=== PATIENT | female | born 1965 | race Caucasian/White ===

== ENCOUNTER 2019-12-28 06:23 | Outpatient (CLI) | payer OTHER, SELFPAY ==
[2019-12-28 16:20] LABS: SARS-CoV-2 RNA PCR Negative
== END 2019-12-28 06:24 | disposition home or self-care (01) ==
LOC: ANHCOVIDDT 06:24
PROVIDERS: PCP Internal Medicine; Visit Provider Surgery
DX: Z01.818 Encounter for other preprocedural examination (principal); Z11.59 Encounter for screening for other viral diseases
CPT/HCPCS: 87635; C9803; U0003

== ENCOUNTER 2019-12-31 00:12 | Day surgery (SDC) | payer OTHER, SELFPAY ==
[2019-10-31 12:07] VITALS: BMI 31.5
--- NOTE | 2019-12-25 14:40 | SUR.PREOP ---
pt states no change in recent health hx since interview on 10/31/19
--- NOTE | 2019-12-31 07:47 | PM.HPGS ---
History of Present Illness History of Present Illness Consent: Risks, benefits, and alternatives of removal of a lipoma have been discussed and questions answered. Patient agrees to proceed with procedure. Chief complaint: 10 cm Subcutaneous Mass Mid Back Narrative: Christal Main is a 54 year old female that presented to the office for an evaluation of a right upper back mass in early October this year. Patient reports she has noticed the mass a few years ago. She reports the mass is getting and that there is pain to the area when pressure is applied. Patient reports that she has had a lipoma removed about 15 years ago. She reports that one was on her back as well but in a different location. She reports over the last year the current mass is about 25% bigger than it was a year ago. Review of Systems Constitutional: Constitutional: Reports no additional constitutional complaints, Reports fatigue and Denies malaise Eyes: Eyes: Denies change in vision and Denies loss of vision ENT: Reports Normal hearing present, Denies change in voice, Denies dizziness, Denies hoarseness and Denies sore throat Cardiovascular: Cardiovascular: Denies chest pain, Denies leg edema and Denies dyspnea Respiratory: Respiratory: Denies cough, Denies dyspnea and Denies wheezing Gastrointestinal: Gastrointestinal: Denies hematochezia, Denies change in bowel habits and Denies heartburn Genitourinary: Genitourinary: Denies urinary frequency and Denies urinary incontinence Integumentary/Breasts: Comments: She has a history of 1 previous lipoma being removed from her back in the past in a different location. Neurologic: Reports Normal hearing present, Denies confusion, Denies dizziness, Denies loss of vision, Denies memory loss and Denies seizure-like activity Psychiatric: Psychiatric: Denies confusion, Denies depression and Denies memory loss Endocrine: Endocrine: Denies cold intolerance and Reports fatigue Hematologic/Lymphatic: Hematologic/Lymphatic: Denies easy bleeding and Denies easy bruising Allergic/Immunologic: Allergic/Immunologic: Denies wheezing PMFSH Past Medical History Medical History Asthma (Unknown) History of asthma Surgical History Surgical History H/O sinus surgery 2017 Hx of removal of cyst Family History Family History Father A-fib Malignant neoplasm of prostate Mother A-fib Hypertension Sibling Cancer Social History Social History Smoking status: Never smoker Alcohol intake: current Substance use: never 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 Medications and Allergies Home Medications Medication Instructions Recorded Confirmed Type cetirizine 10 mg tablet 10 mg PO DAILY 10/16/19 12/31/19 History albuterol sulfate [ProAir HFA] 2 puff INHALATION Q4-6H PRN 10/31/19 10/31/19 History cholecalciferol (vitamin D3) 1,000 unit PO DAILY 10/31/19 12/31/19 History [Vitamin D3] fluticasone propionate [Flonase 1 spray INTRANASAL DAILY PRN 10/31/19 12/31/19 History Allergy Relief] Allergies Allergy/AdvReac Type Severity Reaction Status Date / Time No Known Allergies Allergy Unknown Verified 12/31/19 07:39 Exam Const: General: cooperative, healthy appearing, no acute distress, well developed and alert; No confusion Nutritional Appearance: well nourished Orientation/consciousness: patient oriented x3 and No confusion Limitations: no limitations HENMT: Head: normal to inspection, normocephalic and atraumatic Ears: hearing grossly normal bilaterally General nose exam: Normal external nose present Face and sinus: no edema Mouth: Yes Normal oral and palatal mucosa present and Yes lip normal Throat: posterior oropharynx normal Eyes: Genera
[2019-12-31 07:55] VITALS: BP 141/83; PULSE 76; RESP 16; TEMP 37.3; O2SAT 99
[2019-12-31] MEDS: LACTATED RINGERS 1,000 ML 30 ML IV CONT (08:00)
--- NOTE | 2019-12-31 08:35 | WPDANESEPPF ---
Anes - Initial Pre Proc Eval Procedure: Operation Date: 12/31/19 09:30 Proposed Procedures p Excision Of Subcutaneous Mass Right Mid Back - Darrel Faria MD Date/Time: 12/31/19 08:35 Surgeon: Darrel Faria MD Pre Op Diagnosis: 10 cm Subcutaneous Mass Mid Back Patient Data Age: 54 Gender: F Height: 5 ft 10 in Weight: 106.6 kg Last Vital Signs Temp 37.3 C 12/31/19 07:55 Pulse 76 12/31/19 07:55 Resp 16 12/31/19 07:55 BP 141/83 H 12/31/19 07:55 Pulse Ox 99 12/31/19 07:55 Allergies Allergy/AdvReac Type Severity Reaction Status Date / Time No Known Allergies Allergy Unknown Verified 12/31/19 07:39 Home Medications Medication Instructions Recorded Confirmed Type cetirizine 10 mg tablet 10 mg PO DAILY 10/16/19 12/31/19 History albuterol sulfate [ProAir HFA] 2 puff INHALATION Q4-6H PRN 10/31/19 10/31/19 History cholecalciferol (vitamin D3) 1,000 unit PO DAILY 10/31/19 12/31/19 History [Vitamin D3] fluticasone propionate [Flonase 1 spray INTRANASAL DAILY PRN 10/31/19 12/31/19 History Allergy Relief] Patient hx anesthesia problems: none Family hx anesthesia problems: none PMFSH Past Medical History Medical History Asthma (Unknown) History of asthma Surgical History Surgical History H/O sinus surgery 2017 Hx of removal of cyst Family History Family History Father A-fib Malignant neoplasm of prostate Mother A-fib Hypertension Sibling Cancer Social History Social History Smoking status: Never smoker Alcohol intake: current Substance use: never 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 Questions were solicited and answers provided to the satisfaction of the patient/family/POA.
[2019-12-31] MEDS: LIDO 2%/EPINEPHRINE 1:100,000 20 ML VIAL INFILTRATE (10:15)
--- NOTE | 2019-12-31 10:34 | SUR.OPER ---
EBL:10cc
[2019-12-31 11:04] VITALS: BP 111/69; PULSE 68; RESP 14; TEMP 36.2; O2SAT 100
--- NOTE | 2019-12-31 11:12 | PM.PROC ---
Procedure Note - Detailed Date of procedure: 12/31/19 Pre-op diagnosis: 10 cm Subcutaneous Mass Mid Back Post-op diagnosis: same Procedure performed: Excision of 12 X 11.5 cm subcutaneous mass right mid back Description of procedure: The patient was placed in the left lateral decubitus position. After a surgical time out confirming patient and procedure the patient was prepped and draped in the usual sterile fashion. Local anesthetic was administered subcutaneously along the proposed line of incision transversely and also from that line both cephalad and inferior in the subcutaneous space. The lesion measured prior to excision 9 x 9 cm. A direct transverse incision was made over the area of the subcutaneous mass. I dissected in the subcutaneous space between the lipoma and the fat underlying the skin both inferiorly and superiorly and then circumferentially until we came to the edge of the mass where it attached to some underlying fascia. I then started laterally and carefully rotated the mass grabbing it with Allis forceps and rotating it out of the incision from lateral to medial, dissecting in the plane between theback of the lipoma and the fascia of the underlying muscle until I was able to rotate it completely off the underlying fascia. I thereby completely excised the lesion. Bleeding was controlled with electrocautery. After removal of the fatty mass it measured transversely 11.5 cm and vertically 12.0 cm. Following this because there was a good amount of space that would be left I decided to place a 15 round Federico drain. This is obtained and then brought out through a stab wound approximately 4 cm lateral to the lateral end of the incision. This was sutured into place with a 3-0 nylon suture. It was curled within the subcutaneous space and bulb suction applied after we closed the skin and subcutaneous tissues. The wound was closed in two layers. First interrupted sutures of 2- 0 undyed Vicryl were placed intermittently along the incision to approximate the deep subcutaneous tissues. Then interupted un-dyed 3-0 vicryl deep dermal sutures aproximated skin and then a 4-0 undyed Monocryl running subcuticular closure was completed. Surgical glue applied as dressing. A 2 x 2 was applied around the TORITO drain and medium Tegaderm applied for dressing over this. Patient tolerated this well. Patient will be taught how to empty the drain and sent home with instruction regarding this. Anesthesia: local Surgeon: Darrel Faria MD Estimated blood loss (mL): 10 Drains: Yes ( A 15 FR. round Federico drain placed in the cavity left by excision of the li) Packing: No Pathology: yes Complications: No immediate complications Condition: stable Disposition: same day Findings: A fatty subcutaneous mass densely adhered to the underlying fascia.
[2019-12-31 11:30] VITALS: BP 100/85; PULSE 61; RESP 14
[2019-12-31 12:00] VITALS: BP 99/69; PULSE 61; RESP 14
== END 2019-12-31 12:20 | disposition home or self-care (01) ==
PROVIDERS: PCP Internal Medicine; Visit Provider Surgery
PROC: (CPT 21931; principal; 2019-12-31 09:30)
DX: D17.1 Benign lipomatous neoplasm of skin and subcutaneous tissue of trunk (principal); J45.909 Unspecified asthma, uncomplicated; R00.0 Tachycardia, unspecified
CPT/HCPCS: 21931; 88304; J2001; J2250; J2405; J2704; J3010; J7120

== ENCOUNTER 2020-05-27 07:59 | Outpatient (CLI) | payer OTHER, SELFPAY ==
[2020-05-27 08:31] LABS: Basophils Percent Auto 0.6 % (0.2-1.2); Eosinophils Absolute Auto 0.4 K/mm3 (0-0.3); Eosinophils Percent Auto 5.9 % (0-4.4); Hematocrit 36.1 % (37.0-47.0); Hemoglobin 11.3 g/dL (12.0-15.0); Immature Granulocyte Absolute 0.01 K/mm3 (0.00-0.031); Immature Granulocyte Percent A 0.2 % (0-0.5); Lymphocytes Absolute Auto 2.23 K/mm3 (0.9-3.2); Lymphocytes Percent Auto 33.8 % (18.3-44.2); Mean Corpuscular HGB Conc 31.3 g/dl (32-36); Mean Corpuscular Hemoglobin 24.9 pg (26-34); Mean Corpuscular Volume 79.5 fl (80-100); Mean Platelet Volume 8.2 fl (7.4-10.4); Monocytes Absolute Auto 0.4 K/mm3 (0.1-0.6); Monocytes Percent Auto 5.3 % (2.6-8.5); Neutrophils Absolute Auto 3.6 K/mm3 (1.3-6.7); Neutrophils Percent Auto 54.2 % (45.5-73.1); Platelet Count Result 420 k/mm3 (150-375); Red Blood Count 4.54 M/mm3 (4.2-5.4); Red Cell Distribution Width 15.6 % (11.5-14.5); White Blood Count 6.6 K/mm3 (4.5-10.0)
[2020-05-27 08:43] LABS: Alanine Aminotransferase 29 U/L (4-35); Albumin Level 4.4 g/dL (3.5-5.1); Alkaline Phosphatase 56 U/L (38-126); Anion Gap 11 mmol/L (8-16); Aspartate Amino Transferase 33 U/L (14-36); Bilirubin,Total 0.7 mg/dL (0.2-1.3); Blood Urea Nitrogen 11 mg/dL (7-17); Calcium 9.7 mg/dL (8.4-10.2); Carbon Dioxide 28 mmol/L (22-30); Chloride 99 mmol/L (98-107); Cholesterol 208 mg/dL (0-200); Estimated Glomerular Filt Rate > 60; Glucose 100 mg/dL (65-105); HDL Direct 56 mg/dL; Potassium 4.2 mmol/L (3.4-5.0); Sodium 138 mmol/L (137-145); Triglycerides 231 mg/dL (<150)
[2020-05-27 08:51] LABS: Erythrocyte Sedimentation Rate 23 mm/hr (0-20)
[2020-05-27 08:57] LABS: LDL Cholesterol Direct 107 mg/dL
== END 2020-05-27 08:00 | disposition home or self-care (01) ==
PROVIDERS: PCP Internal Medicine; Referring Provider Physician Assistant; Visit Provider Internal Medicine
DX: Z00.00 Encounter for general adult medical examination without abnormal findings (principal); D47.3 Essential (hemorrhagic) thrombocythemia
CPT/HCPCS: 36415; 80053; 80061; 84443; 85025; 85652

== ENCOUNTER 2020-07-11 11:36 | Outpatient (CLI) | payer OTHER, SELFPAY ==
[2020-07-11 13:42] LABS: Free T4 Free Thyroxine 1.09 ng/mL (0.78-2.19)
[2020-07-17 21:16] LABS: Estrone 14 pg/mL
[2020-07-19 05:41] LABS: FSH 26.1 mIU/mL (***); LH 7.2 mIU/mL (***); Progesterone 0.3 ng/mL (***)
[2020-07-19 14:54] LABS: Testosterone Free 1.3 pg/mL (0.1-6.4); Testosterone Total 10 ng/dL (2-45)
[2020-07-20 17:21] LABS: Estradiol, Ultrasensitive 6 pg/mL
== END 2020-07-11 11:37 | disposition home or self-care (01) ==
PROVIDERS: PCP Internal Medicine; Visit Provider Obstetrics & Gynecology
DX: N93.9 Abnormal uterine and vaginal bleeding, unspecified (principal)
CPT/HCPCS: 36415; 82670; 82679; 83001; 83002; 84144; 84402; 84403; 84439; 84443

== ENCOUNTER → 2020-07-25 13:56 | Outpatient (CLI) | payer OTHER, SELFPAY ==
--- NOTE | ~2020-07-25 | US_ITS ---
EXAMINATION: US pelvic complete w TV DATE: 07/25/2020 14:24 INDICATION: Abnormal bleeding. Menorrhagia. Comparison:No prior studies for comparison. TECHNIQUE: Multiple transabdominal and endovaginal sonographic images of the pelvis performed. FINDINGS: The uterus measures 8.7 x 5.8 x 5.6 cm. The endometrial complex measures 7 mm. The right ovary is not visualized. Left ovary is normal measuring 3 x 1.6 x 2.4 cm. There is no free fluid in the pelvis. There are no abnormal masses seen on either side. IMPRESSION: 1. Unremarkable pelvic ultrasound. Reviewed, dictated and finalized at location B. ARCHIVIST
== END ==
PROVIDERS: PCP Internal Medicine; Visit Provider Obstetrics & Gynecology
DX: N93.9 Abnormal uterine and vaginal bleeding, unspecified (principal)
CPT/HCPCS: 76830; 76856

== ENCOUNTER 2021-01-02 16:17 | Outpatient (CLI) | payer OTHER, SELFPAY ==
[2021-01-05 15:00] LABS: Testosterone Free 1.5 pg/mL (0.1-6.4); Testosterone Total 15 ng/dL (2-45)
[2021-01-06 04:59] LABS: Progesterone 0.9 ng/mL (***)
[2021-01-07 18:08] LABS: Estradiol, Ultrasensitive 30 pg/mL
== END 2021-01-02 16:18 | disposition home or self-care (01) ==
PROVIDERS: PCP Internal Medicine; Visit Provider Obstetrics & Gynecology
DX: N93.9 Abnormal uterine and vaginal bleeding, unspecified (principal); N95.1 Menopausal and female climacteric states
CPT/HCPCS: 36415; 82670; 84144; 84402; 84403

== ENCOUNTER 2021-03-11 15:38 | Outpatient (CLI) | payer OTHER, SELFPAY ==
--- NOTE | ~2021-03-11 | MM_ITS ---
EXAMINATION: MM screening [facility] BI w itz HISTORY: Screening TECHNIQUE: Craniocaudal and mediolateral oblique 3-D tomosynthesis images were obtained and synthetic 2-D images were generated. CAD analysis was submitted and interpreted. COMPARISON: Comparison to multiple prior studies sequentially, with oldest reviewed study dated 04/13. BREAST PARENCHYMAL COMPOSITION: There are scattered areas of fibroglandular density. FINDINGS: There is no evidence of suspicious mass, calcification, or architectural distortion to sugg est malignancy in either breast. There has been no suspicious interval change. IMPRESSION: 1. No mammographic evidence of malignancy. 2. Recommend routine screening mammography in one year. BI-RADS Category 1: Negative Reviewed, dictated and finalized at location A.
== END 2021-03-11 15:39 | disposition home or self-care (01) ==
LOC: ANHIMG 15:40
PROVIDERS: PCP Internal Medicine; Visit Provider Obstetrics & Gynecology
DX: Z12.31 Encounter for screening mammogram for malignant neoplasm of breast (principal)
CPT/HCPCS: 77063; 77067

== ENCOUNTER 2022-06-22 08:32 | Outpatient (CLI) | payer BC, SELFPAY ==
--- NOTE | ~2022-06-22 | MM_ITS ---
EXAMINATION: MM screening [facility] BI w itz HISTORY: Screening TECHNIQUE: Craniocaudal and mediolateral oblique 3-D tomosynthesis images were obtained and synthetic 2-D images were generated. CAD analysis was submitted and interpreted. COMPARISON: Comparison to multiple prior studies sequentially, with oldest reviewed study dated 04/13. BREAST PARENCHYMAL COMPOSITION: There are scattered areas of fibroglandular density. FINDINGS: There is no evidence of suspicious mass, calcification, or architectural distortion to sugg est malignancy in either breast. There has been no suspicious interval change. IMPRESSION: 1. No mammographic evidence of malignancy. 2. Recommend routine screening mammography in one year. BI-RADS Category 1: Negative Reviewed, dictated and finalized at location A.
== END 2022-06-22 08:33 | disposition home or self-care (01) ==
PROVIDERS: PCP Obstetrics & Gynecology; Visit Provider Obstetrics & Gynecology
DX: Z12.31 Encounter for screening mammogram for malignant neoplasm of breast (principal)
CPT/HCPCS: 77063; 77067

== ENCOUNTER 2022-11-01 07:48 | Outpatient (CLI) | payer BC, SELFPAY ==
[2022-11-01 08:02] LABS: Basophils Absolute Auto 0.1 K/mm3 (0.0-0.1); Basophils Percent Auto 0.8 % (0.2-1.2); Eosinophils Absolute Auto 0.4 K/mm3 (0-0.3); Eosinophils Percent Auto 6.9 % (0-4.4); Hematocrit 40.7 % (37.0-47.0); Hemoglobin 14.1 g/dL (12.0-15.0); Immature Granulocyte Absolute 0.02 K/mm3 (0.00-0.031); Immature Granulocyte Percent A 0.3 % (0-0.5); Lymphocytes Absolute Auto 2.36 K/mm3 (0.9-3.2); Lymphocytes Percent Auto 36.8 % (18.3-44.2); Mean Corpuscular HGB Conc 34.6 g/dl (32-36); Mean Corpuscular Hemoglobin 30.9 pg (26-34); Mean Corpuscular Volume 89.3 fl (80-100); Mean Platelet Volume 8.2 fl (7.4-10.4); Monocytes Absolute Auto 0.5 K/mm3 (0.1-0.6); Monocytes Percent Auto 7.2 % (2.6-8.5); Neutrophils Absolute Auto 3.1 K/mm3 (1.3-6.7); Platelet Count Result 298 k/mm3 (150-375); Red Blood Count 4.56 M/mm3 (4.2-5.4); Red Cell Distribution Width 12.7 % (11.5-14.5); White Blood Count 6.4 K/mm3 (4.5-10.0)
[2022-11-01 08:12] LABS: Alanine Aminotransferase 36 U/L (6-35); Albumin Level 4.4 g/dL (3.5-5.1); Alkaline Phosphatase 59 U/L (38-126); Anion Gap 4 mmol/L (8-16); Aspartate Amino Transferase 34 U/L (14-36); Bilirubin,Total 0.9 mg/dL (0.2-1.3); Blood Urea Nitrogen 12 mg/dL (7-17); Carbon Dioxide 29 mmol/L (22-30); Chloride 104 mmol/L (98-107); Cholesterol 217 mg/dL (0-200); Estimated Glomerular Filt Rate > 60; Glucose 98 mg/dL (65-110); HDL Direct 55 mg/dL; Potassium 3.9 mmol/L (3.4-5.0); Sodium 137 mmol/L (137-145); Triglycerides 139 mg/dL (<150)
[2022-11-01 08:23] LABS: LDL Cholesterol Direct 109 mg/dL
[2022-11-01 08:26] LABS: Iron 104 ug/dL (37-170)
[2022-11-01 08:36] LABS: Percent Iron Saturation 32 % (20-50)
[2022-11-01 08:44] LABS: Free T4 Free Thyroxine 1.52 ng/mL (0.78-2.19)
[2022-11-01 09:22] LABS: Folic Acid > 20.0 ng/mL (2.76->20)
== END 2022-11-01 07:49 | disposition home or self-care (01) ==
PROVIDERS: PCP Obstetrics & Gynecology; Visit Provider Internal Medicine
DX: Z00.00 Encounter for general adult medical examination without abnormal findings (principal); D64.9 Anemia, unspecified; R53.83 Other fatigue
CPT/HCPCS: 36415; 80053; 80061; 82607; 82746; 83540; 83550; 84439; 84443; 85025

== ENCOUNTER 2022-12-08 14:07 | Outpatient (CLI) | payer BC, SELFPAY ==
[2022-12-12 04:01] LABS: FSH 59.2 mIU/mL (***); LH 23.3 mIU/mL (***); Progesterone 0.5 ng/mL (***)
[2022-12-13 13:20] LABS: Testosterone Total 15 ng/dL (2-45)
[2022-12-15 21:32] LABS: Estradiol, Ultrasensitive 4 pg/mL
== END 2022-12-08 14:08 | disposition home or self-care (01) ==
LOC: ANHLAB 14:09
PROVIDERS: PCP Internal Medicine; Visit Provider Obstetrics & Gynecology
DX: N95.1 Menopausal and female climacteric states (principal); N93.9 Abnormal uterine and vaginal bleeding, unspecified
CPT/HCPCS: 36415; 82670; 83001; 83002; 84144; 84403

== ENCOUNTER → 2023-04-06 10:10 | Outpatient (CLI) | payer BC, SELFPAY ==
--- NOTE | ~2023-04-06 | CT_ITS ---
EXAMINATION: CT brain & sinus wo con DATE: 04/06/2023 10:30 INDICATION: Headache. Chronic sinusitis. TECHNIQUE: Computed tomography (CT) of the head and paranasal sinuses was performed without intraveno us contrast. The mA was adjusted according to patient size. Iterative reconstruction technique was em ployed. The dose-length product was 674.51 mGy-cm. COMPARISON: Sinuses CT 02/15/2017 FINDINGS: CT HEAD: There is no intracranial hemorrhage, acute infarction, or abnormal intracranial mass lesion. The ventricles are normal in size. The orbits are normal. The mastoid air cells are normal. CT SINUSES: There is complete opacification of right frontal sinus and the right anterior ethmoid sin uses with enlargement of the sinuses and erosions of the sinus contreras. There is mild mucosal thickenin g of left frontal sinus and the anterior and posterior left ethmoid sinuses. The sphenoid sinuses are clear. There is mild mucosal thickening in the maxillary sinuses. The nasal septum is at midline. Th ere are changes of uncinectomies. There is tammi bullosa involving right middle turbinate. The ostio meatal units are widely patent. IMPRESSION: 1. Normal brain. 2. Chronic sinusitis, worsened from 02/15/17. Reviewed, dictated and finalized at location A.
== END ==
PROVIDERS: PCP Internal Medicine; Visit Provider Internal Medicine
DX: R51.9 Headache, unspecified (principal); J32.9 Chronic sinusitis, unspecified
CPT/HCPCS: 70450; 70486

== ENCOUNTER 2023-05-02 01:51 | Day surgery (SDC) | payer BC, SELFPAY ==
[2023-04-26 14:03] VITALS: BMI 31.6
--- NOTE | 2023-04-26 14:10 | PC.NURSE ---
Report to the Outpatient Waiting Room, entrance under the green pavilion located off [facility], at time 09:30AM on date 05-02-23. Planned Procedure Time: 11:30AM. Time changes happen often and if your time is changed the preop area will call you the afternoon before. - You and your visitor will be asked to self-screen and do not enter if you have any COVID symptoms. - A mask is optional within the hospital at this time. Patients may have clear liquids (water, carbonated beverages, clear teas, apple juice) until 3 hours prior to surgery (8:30AM) with a maximum of 20 ounces. - No food from midnight until time of surgery Take the following medications with a SIP of water the morning of surgery: N/A DO NOT STOP ANY OF YOUR OTHER PRESCRIPTION MEDICATIONS PRIOR TO SURGERY ?EXCEPT THE FOLLOWING Medications to discontinue per physician VITAMINS Date to take last dose 04-28-23 Please no make-up, nail guyanese, hairspray, perfume, deodorant, or body powder the day of surgery. No jewelry (including any body piercings) or valuables the day of surgery, leave them at home. Please take a shower or bath the night before, or the morning of, surgery with an antibacterial soap. Wear comfortable, loose fitting clothing. - Jewelry must be removed prior to entering the operating room. Rings and piercings that are not removed may be cut off. - The hospital will not accept responsibility for valuables. - Please leave all valuables, including medications, at home the day of surgery. If you are going home after surgery, a licensed screw driver operator must drive you home. - NO public transportation without another adult if you receive anesthesia. - We recommend that an adult stay with you for 24 hours following discharge. - We also recommend that you do not drive, make important decision, drink alcoholic beverages, or take any drugs that were not prescribed by your health care provider for at least 24 hours after your discharge time. Follow any additional instructions given to you from your surgeon. If you or anyone in your household have experienced Covid symptoms in the past week, please notify your surgeon or the nurse liaison at the phone number below for possible testing. Telephone instructions given to PATIENT and asked if any additional questions and then verbalized understanding. Patient advised to call surgeon office or pre surgery nurse liaison [phone] if any additional questions.
[2023-05-02] VITALS (8 sets, daily range): BP systolic 121–153; BP diastolic 69–94; PULSE 64–98; RESP 12–20; TEMP 36.2–36.3; O2SAT 96–100
--- NOTE | 2023-05-02 08:13 | WPDANESEPPF ---
Anes - Initial Pre Proc Eval Procedure: Operation Date: 05/02/23 10:00 Proposed Procedures p Fusion Guided Right Frontal Sinusotomy, Right Ethmoidectomy, Connie Bullosa Resection - Vance Taylor MD Date/Time: 05/02/23 08:13 Surgeon: Vance Taylor MD Pre Op Diagnosis: chronic frontal sinusitis Patient Data Age: 58 Gender: F Height: 1.78 m Weight: 107.5 kg Last Vital Signs Temp 36.3 C L 05/02/23 08:06 Pulse 85 05/02/23 08:06 Resp 16 05/02/23 08:06 BP 135/82 05/02/23 08:06 Pulse Ox 99 05/02/23 08:06 O2 Del Method Room Air 05/02/23 08:06 Allergies Allergy/AdvReac Type Severity Reaction Status Date / Time banana Allergy Intermediate Swelling Verified 05/02/23 08:06 tree nut Allergy Intermediate Swelling Verified 05/02/23 08:06 Home Medications Medication Instructions Recorded Confirmed Type cetirizine 10 mg tablet (Zyrtec) 10 mg PO DAILY 10/16/19 05/02/23 History albuterol sulfate 90 mcg/actuation 2 puff inhalation Q4-6H PRN 10/31/19 05/02/23 History aerosol inhaler (ProAir HFA) Shortness Of Breath cholecalciferol (vitamin D3) 25 1,000 unit PO DAILY 10/31/19 05/02/23 History mcg (1,000 unit) capsule (Vitamin D3) fluticasone propionate 50 1 spray intranasal DAILY PRN 10/31/19 05/02/23 History mcg/actuation nasal Allergic Symptoms spray,suspension (Flonase Allergy Relief) multivitamin with minerals-folic 1 tablet PO DAILY 04/26/23 05/02/23 History acid 0.4 mg tablet Patient hx anesthesia problems: none Family hx anesthesia problems: none Results Review: All pre-operative results and documents have been reviewed as part of the pre-operative evaluation. [facility] Past Medical History Medical History Asthma (Unknown) History of asthma Surgical History Surgical History H/O sinus surgery 2017 Hx of removal of cyst Family History Family History Father A-fib Malignant neoplasm of prostate Mother A-fib Hypertension Sibling Cancer Social History Social History Smoking status: Never smoker Second hand tobacco smoke exposure: Yes ( A CHILD) Alcohol intake: current Drinks per week: 2 Alcohol use details: SOCIALLY Substance use: never Substance use type: does not use Lack of Transportation: No Lack of Food: Never True Current Housing: I Have Housing Concerned About Future Housing: No Difficulty Paying Gas/Electric Bills: No Difficulty Paying for Meds: No Currently Unemployed: No Education: Bachelor's Degree Difficulty w/ Childcare or Family Care: No Living arrangements: with family Occupation/Education: occupation 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 Informed Consent: The patient's anesthetic plan and its attendant risks and benefits were discussed with the patient/family/POA. Questions were solicited and answers provided to the satisfaction of the patient/family/POA.
[2023-05-02] MEDS: LACTATED RINGERS 1,000 ML 30 ML IV CONT (08:22)
[2023-05-02] MEDS: ACETAMINOPHEN 500 MG TABLET 1000 MG PO (08:23)
--- NOTE | 2023-05-02 09:04 | WPDHPUPDATE1 ---
History and Physical Update Update Date/Time: 05/02/23 09:04 History and Physical has been reviewed, including an updated exam of the patient. There are NO changes in the patient's condition. Risks, benefits, and alternatives have been discussed and questions answered. Patient agrees to proceed with procedure.
[2023-05-02] MEDS: ceFAZolin 2 GM/D5W 50 ML 2 GM/50 ML BAG IVPB (09:32)
[2023-05-02] MEDS: LIDO 1%/EPINEPHRINE 1:100,000 20 ML VIAL 5 ML INFILTRATE (09:51)
--- NOTE | 2023-05-02 10:13 | W.PM.PROC2 ---
Procedure Note - Detailed Date of Procedure 05/02/23 Pre-op Diagnosis chronic frontal sinusitis Post-op Diagnosis Same Procedure Performed Revision frontal sinusotomy and ethmoidectomy, right tammi bullosectomy Surgeon Vance Taylor MD Anesthesia General Indications Chronic frontal sinusitis Findings Thick mucous within a mucocele occluding the frontal sinus on the right. Specimen sent but not appearing to be a neoplasm or mass. Description of Procedure On the date of procedure the patient was met in the preoperative area and risk and benefits of the procedure reviewed with the patient as documented in the H&P and they elected to proceed with surgery. Patient was brought back to the operating room by the anesthesia team and underwent general endotracheal anesthesia. Once an adequate plane of anesthesia was obtained a timeout was performed to assure the patient identification the patient here to be performed were correct. They were.The patient was then prepped and draped in the normal fashion for endoscopic sinus surgery. The diffusion image guidance system was calibrated and used for the entire case. Afrin-soaked pledgets were placed in the nasal cavities bilaterally. The entire case was performed under endoscopic visualization. On the right side, the middle turbinate and area of mass/occlusion was infiltrated with 1% lidocaine with 1:100k epinephrine. The middle turbinate was medialized. A curette was used to enter the area of occlusion. This as a firm wall, almost appeared bony vs. soft tissue and after the curette entered, mucous came out. Photos taken. A blakesy forcep was used to take down the wall of what was an apparent mucocele in the ethmoid sinus that was involving and occluding the frontal sinus. Significant infected mucous removed. More photos taken. The right frontal sinus was copiously irrigated. The materal removed that was the wall of the mucocele was sent for pathology. Microdebrider used to finish opening up the ethmoid sinus. The tammi bullosa of the right middle turbate was removed with microdebrider as well. Nasopore placed. This concluded the procedure, care of the patient was returned to anesthesia who woke her up, extubated her and transferred her to PACU for recovery in stable condition without complication. Estimated Blood Loss 5 Drains No Packing Yes (nasopore on right) Pathology Yes (right frontal mucocele) Complications None Condition Stable Disposition PACU
[2023-05-02] MEDS: MUPIROCIN 2% OINT 22 GM TUBE 1 APPLIC EACH NARE (10:15)
--- NOTE | 2023-05-02 10:41 | SUR.PHASEI ---
1040: Simple mask removed.
== END 2023-05-02 11:50 | disposition home or self-care (01) ==
PROVIDERS: PCP Internal Medicine; Visit Provider Otolaryngology
PROC: (CPT 31240; principal; 2023-05-02 10:00)
DX: J32.1 Chronic frontal sinusitis (principal); J45.909 Unspecified asthma, uncomplicated; Z79.51 Long term (current) use of inhaled steroids; E66.9 Obesity, unspecified; Z68.34 Body mass index [BMI] 34.0-34.9, adult
CPT/HCPCS: 31240; 31253; 61782; 88305; 88311; A9270; J0330; J0690; J1100; J2250; J2371; J2405; J2704; J3010; J7120

== ENCOUNTER 2023-08-23 15:36 | Outpatient (CLI) | payer BC, SELFPAY ==
--- NOTE | ~2023-08-23 | US_ITS ---
US venous doppler [facility] DATE: 08/23/2023 16:57 INDICATION: Left leg pain TECHNIQUE: Real-time and color flow imaging and Doppler analysis of the veins of the left lower extre mity COMPARISON: None FINDINGS: The left great saphenous vein is patent. There is spontaneous and phasic flow and normal au gmentation and color flow signal and normal compression of the deep veins of the left lower extremity . IMPRESSION: No evidence of deep venous thrombosis of the left lower extremity Reviewed, dictated and finalized at Location A. Reviewed, dictated and finalized at location L. MATED EQUIPMENT ENGINEER TECHNICIAN
== END 2023-08-23 15:37 | disposition home or self-care (01) ==
PROVIDERS: PCP Internal Medicine; Visit Provider Physician Assistant
DX: M79.605 Pain in left leg (principal)
CPT/HCPCS: 93971

== ENCOUNTER 2023-11-07 15:40 | Outpatient (CLI) | payer BC, SELFPAY ==
--- NOTE | ~2023-11-07 | MM_ITS ---
EXAMINATION: MM screening [facility] BI w itz HISTORY: Screening TECHNIQUE: Craniocaudal and mediolateral oblique 3-D tomosynthesis images were obtained and synthetic 2-D images were generated. CAD analysis was submitted and interpreted. COMPARISON: Comparison to multiple prior studies sequentially, with oldest reviewed study dated 09/18. BREAST PARENCHYMAL COMPOSITION: Not dense: There are scattered areas of fibroglandular density. FINDINGS: There is no evidence of suspicious mass, calcification, or architectural distortion to sugg est malignancy in either breast. There has been no suspicious interval change. IMPRESSION: 1. No mammographic evidence of malignancy. 2. Recommend routine screening mammography in one year. BI-RADS Category 1: Negative Reviewed, dictated and finalized at location A.
== END 2023-11-07 15:41 | disposition home or self-care (01) ==
LOC: ANHIMG 15:48
PROVIDERS: PCP Internal Medicine; Visit Provider Obstetrics & Gynecology
DX: Z12.31 Encounter for screening mammogram for malignant neoplasm of breast (principal)
CPT/HCPCS: 77063; 77067

== ENCOUNTER 2024-06-27 08:46 | Outpatient (CLI) | payer BC, SELFPAY ==
[2024-06-27 09:10] LABS: Hematocrit 41.6 % (37.0-47.0); Hemoglobin 14.5 g/dL (12.0-15.0); Mean Corpuscular HGB Conc 34.9 g/dl (32-36); Mean Corpuscular Hemoglobin 31.3 pg (26-34); Mean Corpuscular Volume 89.8 fl (80-100); Mean Platelet Volume 8.1 fl (7.4-10.4); Platelet Count Result 353 k/mm3 (150-375); Red Blood Count 4.63 M/mm3 (4.2-5.4); Red Cell Distribution Width 12.8 % (11.5-14.5); White Blood Count 5.4 K/mm3 (4.5-10.0)
[2024-06-27 09:28] LABS: Alanine Aminotransferase 30 U/L (6-35); Albumin Level 4.3 g/dL (3.5-5.1); Alkaline Phosphatase 62 U/L (38-126); Anion Gap 8 mmol/L (4-12); Aspartate Amino Transferase 30 U/L (14-36); Bilirubin,Total 0.9 mg/dL (0.2-1.3); Blood Urea Nitrogen 10 mg/dL (7-17); Calcium 9.3 mg/dL (8.4-10.2); Carbon Dioxide 26 mmol/L (22-30); Chloride 104 mmol/L (98-107); Cholesterol 207 mg/dL (0-200); Estimated Glomerular Filt Rate > 60; Glucose 95 mg/dL (65-110); HDL Direct 52 mg/dL; Potassium 4.2 mmol/L (3.4-5.0); Sodium 138 mmol/L (137-145); Triglycerides 140 mg/dL (<150)
[2024-06-27 09:38] LABS: LDL Cholesterol Direct 111 mg/dL
[2024-06-27 10:00] LABS: Vitamin D 25 Hydroxy 62.1 ng/mL
== END 2024-06-27 08:47 | disposition home or self-care (01) ==
LOC: ANHLAB 08:47
PROVIDERS: PCP Family Medicine; Visit Provider Family Medicine
DX: M25.562 Pain in left knee (principal); M25.559 Pain in unspecified hip; R53.83 Other fatigue
CPT/HCPCS: 36415; 80053; 80061; 82306; 82607; 84443; 85027

== ENCOUNTER 2024-07-10 07:49 | Outpatient (CLI) | payer BC, SELFPAY ==
--- NOTE | ~2024-07-10 | XR_ITS ---
XR knee LT 3V Ordering provider: Uvaldo Johnston MD History: . M25.562 - Pain in left knee . Comparison: None. FINDINGS: BONES: No acute fracture or dislocation. JOINT SPACES: Normal. Marginal osteophytes in the patella. SOFT TISSUES: Normal. IMPRESSION: No acute osseous abnormality left knee. Mild osteoarthritic changes of the patellofemoral joint. Reviewed, dictated and finalized at location A. THER
--- NOTE | ~2024-07-10 | XR_ITS ---
XR hip RT min 2V Ordering provider: Uvaldo Johnston MD History: . M25.559 - Pain in unspecified hip . Comparison: None. FINDINGS: BONES: No acute fracture or dislocation. HIP JOINT SPACES: Moderate narrowing of the joint space with marginal osteophytes. Follow-up PUBIC SYMPHYSIS: Normal. SOFT TISSUES: Normal. IMPRESSION: No acute osseous abnormality pelvis and right hip. Moderate osteoarthritic changes. Reviewed, dictated and finalized at location A. LIAISON
== END 2024-07-10 07:50 | disposition home or self-care (01) ==
PROVIDERS: PCP Family Medicine; Visit Provider Family Medicine
DX: M17.12 Unilateral primary osteoarthritis, left knee (principal); M16.11 Unilateral primary osteoarthritis, right hip
CPT/HCPCS: 73502; 73562

== ENCOUNTER 2024-12-14 08:47 | Outpatient (CLI) | payer BC, SELFPAY ==
--- NOTE | ~2024-12-14 | MM_ITS ---
EXAMINATION: MM screening surinder BI w itz HISTORY: Screening TECHNIQUE: Craniocaudal and mediolateral oblique 3-D tomosynthesis images were obtained and synthetic 2-D images were generated. CAD analysis was submitted and interpreted. COMPARISON: Comparison to multiple prior studies sequentially, with oldest reviewed study dated 01/12. BREAST PARENCHYMAL COMPOSITION: Not dense: There are scattered areas of fibroglandular density. FINDINGS: There is a developing asymmetry in the upper outer quadrant of the right breast, anterior-m iddle depth. The left breast is stable without evidence for malignancy. IMPRESSION: 1. Developing right breast asymmetry, upper outer quadrant, anterior-middle depth. 2. Additional mammographic views and possible breast ultrasound are recommended. BI-RADS Category 0: Incomplete: Needs additional imaging evaluation. Reviewed, dictated and finalized at location A. IMPRESSION: 1. Developing right breast asymmetry, upper outer quadrant, anterior-middle dep th. 2. Additional mammographic views and possible breast ultrasound are recommended . BI-RADS Category 0: Incomplete: Needs additional imaging evaluation.
--- OUTSIDE RECORDS SUMMARY | 2024-12-14 08:57 | XMS_ITS ---
Author Organization [facility] [employer] [place] ([address]) Address [address] [place] [address] Care Team Providers Care Railway Signal Electrician Name Role Phone Uvaldo Johnston Primary Care Provider UnavailFaby Dsouza Unavailable [phone] Summer Vlale Unavailable Unavailable Omari Matias Unavailable [phone] REASON FOR VISIT SCIT - Traditional Schedule Allergy Immunotherapy (Week ) Medications Medication SIG (Take, Route, Frequency, Duration) Notes Start Date End Date Status predniSONE 20 MG 2 tabs Orally Once a day for 4 days 05/31/2024 Active OLOPATADINE HYDROCHLORIDE 665 MCG/INH 2 SPRAY(S) INTRANASALLY 2 TIMES A DAY for 30 DAY(S) *Please review for potential replacement for e-prescription and drug interaction check* Not-Taking Vitamin D3 25 MCG (1000 UT) 1 tab(s) orally once a day for 30 day(s) Not-Taking Auvi-Q 0.3 MG/0.3ML 0.3 mg intramuscularly once for 1 dose(s) Not-Taking Montelukast Sodium 10 MG 1 tab(s) orally 30 min prior to shots for 30 day(s) Not-Taking Famotidine 40 MG 1 tab(s) orally 1 hr prior to shots for 30 days 12/19/2023 Active ZyrTEC Allergy 10 MG 1 tab(s) orally once a day Active FAMOTIDINE 40 mg 1 tab(s) orally 1 hr prior to shots for 30 days 12/19/2023 Not-Taking ZYRTEC 10 mg 1 tab(s) orally once a day Not-Taking FLONASE 50 mcg/inh 1 spray(s) in each nostril once a day for 30 day(s) Not-Taking OLOPATADINE HYDROCHLORIDE 665 mcg/inh 2 spray(s) intranasally 2 times a day for 30 day(s) Active AUVI-Q 0.3 mg 0.3 mg intramuscularly once for 1 dose(s) Active Flonase Allergy Relief 50 MCG/ACT 1 spray(s) in each nostril once a day for 30 day(s) Active SIT (TRADITIONAL) variable per schedule SC per schedule for to be determined Active NASAL WASHES N/A as directed intranasally as needed for 30 Active D3 1000 1000 intl units 1 tab(s) orally once a day for 30 day(s) Active MONTELUKAST SODIUM 10 mg 1 tab(s) orally 30 min prior to shots for 30 day(s) Active AEROCHAMBER MDI SPACER N/A user with MDI inhalers by mouth q4-6 hours PRN for 30 day(s) Active PROAIR HFA 90 mcg/inh 2 puff(s) inhaled Q4-6 hours, PRN and per the asthma action plan for 30 day(s) Active Encounters Encounter Location Date Provider Diagnosis [facility] [address] [facility] [address] [place] [address] 10/30/2024 Omari Matias Allergic rhinitis du e to pollen J30.1 ; Other allergic rhinitis J30.89 ; Allergic rhinitis due to animal (cat) (dog) hair and dander J30.81 and Other chronic allergic conjunctivitis H10.45 Assessments Encounter Date Diagnosis (ICD Code) Assessment Notes Treatment Notes Treatment Clinical Notes Section Notes 10/30/2024 Allergic rhinitis due to pollen (ICD-10 - J30.1) 10/30/2024 Other allergic rhinitis (ICD-10 - J30.89) 10/30/2024 Allergic rhinitis due to animal (cat) (dog) hair and dander (ICD-10 - J30.81) 10/30/2024 Other chronic allergic conjunctivitis (ICD-10 - H10.45) Plan Of Treatment Next Appt Details Follow Up: As scheduled, Darline son: Provider Name:Faby Corea , 03/21/2025 04:15:00 PM, [address], [address], [place], [address], Progress Notes * Christal DEDOB:1964 (59 yo F)Acc No.[id number]:10/30/2024 SCIT-Aeroallergen Patient: Christal LONG Provider: Leonie Matias MD :1965 A ge:59 Y S ex:Female Date:10/30/2024 Address:[address] [place], [place] [id number] Pcp:Uvaldo Johnston Subjective: * Chief Complaints: * S CIT - Traditional Schedule Allergy Immunotherapy (Week ) * HPI: * Introduction: The patient is here for scheduled immunotherapy. Please see the attached specialty form regarding the specifics of the administration of these vaccines. As per our protocol, they must undergo a screening health questionnaire (medication changes, reaction(s) to last immunotherapy dose(s), current health status, ACT (if appropriate), self-injectable epinephrine on patient(?) and peak flow (if appropriate)). Also, the patient must wait in our office for 30 minutes after receiving the vaccine(s). Furthermore, every patient must have an epinephrine pen (self-injectable) with them at the time of administration--and carry if for the following 1.5 hours after they leave our office. The patient must also have taken their antihistamine the day of the injection, preferably 2 hours prior. The consent form for SCIT (subcutaneous immunotherapy) is on file. * Medical History: * Surgical History: * Hospitalization/Major Diagno stic Procedure: * Medications: T akingD3 1000 1000 intl units tablet 1 tab(s) orally once a day PROAIR HFA 90 mcg/inh aerosol 2 puff(s) inhaled Q4-6 hours, PRN and per the asthma action plan AEROCHAMBER MDI SPACER N/A N/A user with MDI inhalers by mouth q4-6 hours PRN MONTELUKAST SODIUM 10 mg tablet 1 tab(s) orally 30 min prior to shots NASAL WASHES N/A 1 quart of sterilized tap water or distilled water, 1 tsp NaCl, 1 pinch of baking soda as directed intranasally as needed SIT (TRADITIONAL) variable see record per schedule SC per schedule AUVI-Q 0.3 mg kit 0.3 mg intramuscularly once OLOPATADINE HYDROCHLORIDE 665 mcg/inh spray 2 spray(s) intranasally 2 times a day Flonase Allergy Relief 50 MCG/ACT Suspension 1 spray(s) in each nostril once a day ZyrTEC Allergy 10 MG Tablet 1 tab(s) orally once a day Famotidine 40 MG Tablet 1 tab(s) orally 1 hr prior to shots predniSONE 20 MG Tablet 2 tabs Orally Once a day Taking D3 1000 1000 intl units tablet 1 tab(s) orally once a day Taking PROAIR HFA 90 mcg/inh aerosol 2 puff(s) inhaled Q4-6 hours, PRN and per the asthma action plan Taking AEROCHAMBER MDI SPACER N/A N/A user with MDI inhalers by mouth q4-6 hours PRN Taking MONTELUKAST SODIUM 10 mg tablet 1 tab(s) orally 30 min prior to shots Taking NASAL WASHES N/A 1 quart of sterilized tap water or distilled water, 1 tsp NaCl, 1 pinch of baking soda as directed intranasally as needed Taking SIT (TRADITIONAL) variable see record per schedule SC per schedule Taking AUVI-Q 0.3 mg kit 0.3 mg intramuscularly once Taking OLOPATADINE HYDROCHLORIDE 665 mcg/inh spray 2 spray(s) intranasally 2 times a day Taking Flonase Allergy Relief 50 MCG/ACT Suspension 1 spray(s) in each nostril once a day Taking ZyrTEC Allergy 10 MG Tablet 1 tab(s) orally once a day Taking Famotidine 40 MG Tablet 1 tab(s) orally 1 hr prior to shots Taking predniSONE 20 MG Tablet 2 tabs Orally Once a day Not-Taking/PRNFLONASE 50 mcg/inh spray 1 spray(s) in each nostril once a day ZYRTEC 10 mg tablet 1 tab(s) orally once a day FAMOTIDINE 40 mg tablet 1 tab(s) orally 1 hr prior to shots Vitamin D3 25 MCG (1000 UT) Tablet 1 tab(s) orally once a day Montelukast Sodium 10 MG Tablet 1 tab(s) orally 30 min prior to shots Auvi-Q 0.3 MG/0.3ML Solution Auto-injector 0.3 mg intramuscularly once OLOPATADINE HYDROCHLORIDE 665 MCG/INH SPRAY 2 SPRAY(S) INTRANASALLY 2 TIMES A DAY , Notes to Pharmacist: *Please review for potential replacement for e-prescription and drug interaction check*Not-Taking/PRN FLONASE 50 mcg/inh spray 1 spray(s) in each nostril once a day Not-Taking/PRN ZYRTEC 10 mg tablet 1 tab(s) orally once a day Not-Taking/PRN FAMOTIDINE 40 mg tablet 1 tab(s) orally 1 hr prior to shots Not-Taking/PRN Vitamin D3 25 MCG (1000 UT) Tablet 1 tab(s) orally once a day Not-Taking/PRN Montelukast Sodium 10 MG Tablet 1 tab(s) orally 30 min prior to shots Not-Taking/PRN Auvi-Q 0.3 MG/0.3ML Solution Auto-injector 0.3 mg intramuscularly once Not-Taking/PRN OLOPATADINE HYDROCHLORIDE 665 MCG/INH SPRAY 2 SPRAY(S) INTRANASALLY 2 TIMES A DAY , Notes to Pharmacist: *Please review for potential replacement for e-prescription and drug interaction check* Objective: * Vitals: Assessment: * Assessment: 1. A llergic rhinitis due to pollen - J30.1 (Primary) 2 . O ther allergic rhinitis - J30.89 3 . A llergic rhinitis due to animal (cat) (dog) hair and dander - J30.81 4 . O ther chronic allergic conjunctivitis - H10.45 Plan: * Treatment: * Procedure Codes: 9 5117 IMMUNOTHERAPY INJECTIONS * Preventive Medicine: Counseling: E xercise A void heavy lifting on days of allergy immunotherapy. M edication instruction: I njectable epinephrine education and instruction w/ discussion of signs and symptoms of anaphylaxis and reasons to seek urgent or emergent care, Watch for side effects of prescribed medications. E ducation: A ble to return demonstration of self-injectable epinephrine. * Follow Up: A s scheduled * Billing Information: * Visit Code: * Procedure Codes: 80124 IMMUNOTHERAPY INJECTIONS. * Sign off status: Completed true * Provider: Leonie Matias MD Date: 0 10/30/2024 Generated for Basilia lara/Kelley/eTransmitting on: 0 12/14/2024 08:57 AM CDT History and Physical Notes * HPI (History of Present Illness) Category Sub-Category Detail Notes Category Not es *Introduction The patient is here for scheduled immunotherapy. Please see the attached specialty form regarding the specifics of the administration of these vaccines. As per our protocol, they must undergo a screening health questionnaire (medication changes, reaction(s) to last immunotherapy dose(s), current health status, ACT (if appropriate), self-injectable epinephrine on patient(?) and peak flow (if appropriate)). Also, the patient must wait in our office for 30 minutes after receiving the vaccine(s). Furthermore, every patient must have an epinephrine pen (self-injectable) with them at the time of administration--and carry if for the following 1.5 hours after they leave our office. The patient must also have taken their antihistamine the day of the injection, preferably 2 hours prior. The consent form for SCIT (subcutaneous immunotherapy) is on file.
--- OUTSIDE RECORDS SUMMARY | 2024-12-14 08:58 | XMS_ITS | Referral Summary ---
Author Organization [facility] Address [address] [place] [address] Care Team Providers Care Coding Assistant Name Role Phone Chet Christianson MD Primary Care Provider [phone] Allergies No known active allergies Medications ibuprofen (ADVIL,MOTRIN) 200 mg tab/cap Take 400 mg by mouth every 6 (six) hours as needed for pain Active acetaminophen (TYLENOL) 325 mg suppository Insert 325 mg into the rectum every 4 (four) hours as needed for pain Active albuterol HFA (PROVENTIL HFA,VENTOLIN HFA,PROAIR HFA) 90 mcg/actuation inhaler Inhale 2 puffs every 6 (six) hours as needed for wheezing Active cetirizine (ZyrTEC) 10 mg tablet Take 10 mg by mouth daily Active ferrous sulfate 325 mg (65 mg of elemental iron) tabletIndication s:Iron Deficiency Anemia Take 65 mg of elemental iron by mouth daily with breakfast Active multivitamin capsule Take 1 capsule by mouth daily Active calcium citrate-vitamin D2 250 mg-2.5 mcg (100 unit) per tablet Take 1 tablet by mouth 2 (two) times a day Active ketorolac (TORADOL) 10 mg tablet Take 1 tablet (10 mg total) by mouth every 6 (six) hours as needed for pain 20 tablet 2 Active Active Problems No known active problems Social History Tobacco Use Types Packs/Day Years Used Date Smoking Tobacco: Never AUDIT-C Answer Date Recorded Q1: How often do you have a drink containing alc ohol? 2-4 times a month 12/09/2021 Q2: How many drinks containi ng alcohol do you have on a typical day when you are drinking? 1 or 2 12/09/2021 Q3: How often do you have si x or more drinks on one occasion? Never 12/09/2021 Comments No Sex and Gender Information Value Date Recorded Sex Assigned at Not on file Legal Sex Female 1:57 AM LAB TECH Gender Identity Not on file Sexual Orientation Not on file Last Filed Vital Signs Vital Sign Reading Time Taken Comments Blood Pressure 114/73 12/09/2021 12:35 PM CDT Pulse 78 12/09/2021 12:35 PM CDT Temperature 36.6 C (97.8 F) 12/09/2021 12:05 PM CDT Respiratory Rate 18 12/09/2021 12:3 5 PM CDT Oxygen Saturation 96% 12/09/2021 12: 35 PM CDT Inhaled Oxygen Concentration - - Weight 104.6 kg (230 lb 11.2 oz) 12/09/2021 9:09 AM CDT Height 177.8 cm (5' 10 ) 12/09/2021 9:09 AM CDT Body Mass Index 33.1 12/09/2021 9:09 AM CDT Plan of Treatment Not on file Insurance CHOICE OOS BLUE ACC CHOICE OOS Care Teams Coding Assistant Relationship Specialty Start Date End Date Chet Christianson MD [address] [facility] [address] [place] [address] PCP - General Internal Medicine 11/27/21
--- OUTSIDE RECORDS SUMMARY | 2024-12-14 08:58 | XMS_ITS ---
Author Organization [facility] [place] ([address]) Address [address] [place] [address] Care Team Providers Care Hygiene Assistant Name Role Phone Uvaldo Johnston Primary Care Provider Faby Ellison Unavailable [phone] Summer Valle Unavailable Unavailable REASON FOR VISIT ARC follow-up Encounters Encounter Location Date Provider Diagnosis [facility] [address] [place] [address] 12/13/2024 aFby Corea Plan Of Treatment Next Appt Details Provider Name:Faby Corea , 03/21/2025 04:15:00 PM, [address] [employer] [facility], [address], [place], [address], Progress Notes * Christal DEDOB:1964 (59 yo F)Acc No.[id number]:12/13/2024 Progress Notes Patient: Christal LONG Provider: Linnea Corea PA-C :1965 A ge:59 Y S ex:Female Date:12/13/2024 Address:[address] [place], [place] [address] Pcp:Uvaldo Johnston Subjective: * Chief Complaints: * 1 . ARC follow-up. * Medical History: Objective: * Vitals: Assessment: Plan: * Treatment: * Billing Information: * Visit Code: * Procedure Codes: * Electronic signature of Andrea Corea PA-C, [facility]Stefany on 12/14/2024 at 08:57 AM CDT Sign off status: Pending * Provider: Linnea Corea PA-C Date: 0 12/13/2024 Generated for Basilia lara/Kelley/Shanda on: 0 12/14/2024 08:57 AM CDT
--- OUTSIDE RECORDS SUMMARY | 2024-12-14 08:58 | XMS_ITS | Clinical Summary ---
Author Organization [facility] Address [address] [place] [address] Care Team Providers Care Hoop Machine Operator Name Role Phone Chet Christianson MD Primary Care Provider +1- [phone] Allergies No known active allergies Medications ibuprofen [...] Active Active Problems No known active problems Surgical History Surgery Date Site/Laterality Comments LIPOMA RESECTION 12/21/2019 - 01/20/2020 back SINUS SURGERY 08/22/2016 - 08/21/2017 Medical History Medical History Date Comments Asthma Anemia hx Tachycardia occasional--no c hest pain or other symptoms Social History Tobacco Use Types Packs/Day Years [...] on file Legal Sex Female 1:57 AM TRAUMA SURGEON Gender Identity Not on file Sexual Orientation Not on file Obstetrics History Last Filed Vital Signs Vital Sign Reading [...] 12/09/2021 9:09 AM CDT Plan of Treatment Health Maintenance Due Date Last Done Comments Breast Cancer Screening-Mammogram 1965 Cervical Cancer Screening 1965 Colon Cancer Screening-Colonoscopy 1965 Depression Screening 1966 Hepatitis C Screening 1966 DTaP/Tdap/Td Vaccine (1 - Tdap) 1977 Hepatitis B Screening 1984 Regular Well Visit/Exam 18-64 1984 Zoster Vaccine (1 of 2) 2016 Covid-19 Vaccine (2023-2 5 season) 2024 08/31/2020, 08/10/2020 Influenza Vaccine (#1) 2024 0, 08/29/2018, 05/30/2017 Pneumococcal vaccine <65 Aged Out 021, 03/21/2017 No longer eligible based on patient's age to complete this topic Insurance [employer] CHOICE OOS BLUE [employer] CHOICE OOS BLUE ACC CHOICE OOS Care Teams Hoop Machine Operator Relationship Specialty Start Date End Date Chet Christianson MD [address] [facility] [address] [place] [address] PCP - General Internal Medicine 11/27/21
--- OUTSIDE RECORDS SUMMARY | 2024-12-14 08:58 | XMS_ITS | Clinical Summary ---
Author Organization [facility] Address [address] [facility] [place] [address] Care Team Providers Care Procurement Inspector Name Role Phone Unavailable Primary Care Provider Unavailabl e Source Comments [facility],non-owned Affiliates and Associated Physician Practices is amultiple site organization consisting of ambulatory clinics and hospital sitesin [place], [place], [place] and [place]. This disclosure is being madepursuant to the Care Everywhere program and may not contain all information available regarding this patient. Last updated 18.[facility] [employer] Allergies No known active allergies Medications * Be aware that medications may not be up to date on this document. Alwaysverify current medications with the patient. ibuprofen (MOTRIN) 200 MG tablet Take 200 mg by mouth every 6 hours as needed for Pain. Active fexofenadine (GRISELDA) 180 MG tablet Take 180 mg by mouth daily. Active Family History Medical History Relation Name Comments Cancer Paternal Grandmother Relation Name Status Comments Paternal Grandmother Social History Tobacco Use Types Packs/Day Years Used Date Smoking Tobacco: Never Alcohol Use Standard Drinks/Week Comments No 0 (1 standard drink = 0.6 oz pur e alcohol) Comments Unknown Sex and Gender Information Value Date Recorded Sex Assigned at Not on file Legal Sex Female 5:25 AM CALENDER LET OFF HELPER Gender Identity Not on file Sexual Orientation Not on file Last Filed Vital Signs Vital Sign Reading Time Taken Comments Blood Pressure 97/70 10/01/2009 11:30 AM CALENDER LET OFF HELPER Pulse 64 10/01/2009 11:30 AM CALENDER LET OFF HELPER Temperature - - Respiratory Rate 16 10/01/2009 9:43 AM CALENDER LET OFF HELPER Oxygen Saturation 95% 10/01/2009 11:00 AM CALENDER LET OFF HELPER Inhaled Oxygen Concentration - - Weight 93 kg (205 lb) 10/01/2009 9:43 AM CALENDER LET OFF HELPER Height 177.8 cm (5' 10 ) 10/01/2009 9:43 AM CALENDER LET OFF HELPER Body Mass Index 29.41 10/01/2009 9:43 AM CALENDER LET OFF HELPER Plan of Treatment Health Maintenance Due Date Last Done Comments COLOGUARD (AGES 45-75) - COL ON CA SCREENING 1966 COLON MONITORING 1966 COLONOSCOPY - COLON CA SCREENING 1966 CT COLONOGRAPHY - COLON CA SCREENING 1966 Colorectal Cancer Screening 1966 FIT - COLON CA SCREENING 1966 FLEX SIG - COLON CA SCREENING 1966 LIPID TESTING 1966 MAMMOGRAM 1966 PAP SMEAR 1966 HIV SCREENING 1981 HEPATITIS C SCREENING 04/08/1984 DTAP/TDAP/TD VACCINES (1 - Tdap) 1985 HEPATITIS B VACCINE (1 of 3 - 19+ 3-dose series) 1985 PNEUMOCOCCAL VACCINE 50+ (1 of 1 - PCV) 2016 ZOSTER VACCINE (1 of 2) 2016 COVID-19 VACCINE (1 - 2023-2 5 season) 2024 DEPRESSION SCREENING 08/22/2024 INFLUENZA VACCINE (Season Ended) 2025 HIB VACCINE Aged Out No longer eligi ble based on patient's age to complete this topic HPV VACCINE Aged Out No longer eligi ble based on patient's age to complete this topic MENINGOCOCCAL (Group B) VACC INE SHARED DECISION-MAKING Aged Out No longer eligibl e based on patient's age to complete this topic MENINGOCOCCAL GROUPS A/C/Y/W VACCINE Aged Out No longer eligible b ased on patient's age to complete this topic Insurance [facility] BCBS/BLUE BLUE CROSS BLUE [facility]
--- OUTSIDE RECORDS SUMMARY | 2024-12-14 08:58 | XMS_ITS ---
Author Organization [facility] [employer] [place] ([address]) Address [address] [place] [address] Care Team Providers Care Treatment Manager Name Role Phone Uvaldo Johnston Primary Care Provider UnavailFaby Dsouza Unavailable [phone] Summer Valle Unavailable Unavailable Omari Matias Unavailable [phone] REASON FOR VISIT SCIT - Traditional Schedule Allergy Immunotherapy (Week ) Medications Medication SIG (Take, Route, Frequency, Duration) Notes Start Date End Date Status Auvi-Q 0.3 MG/0.3ML 0.3 mg intramuscularly once for 1 dose(s) Not-Taking OLOPATADINE HYDROCHLORIDE 665 MCG/INH 2 SPRAY(S) INTRANASALLY 2 TIMES A DAY for 30 DAY(S) *Please review for potential replacement for e-prescription and drug interaction check* Not-Taking FAMOTIDINE 40 mg 1 tab(s) orally 1 hr prior to shots for 30 days 12/19/2023 Not-Taking Montelukast Sodium 10 MG 1 tab(s) orally 30 min prior to shots for 30 day(s) Not-Taking Vitamin D3 25 MCG (1000 UT) 1 tab(s) orally once a day for 30 day(s) Not-Taking ZyrTEC Allergy 10 MG 1 tab(s) orally once a day Active Flonase Allergy Relief 50 MCG/ACT 1 spray(s) in each nostril once a day for 30 day(s) Active FLONASE 50 mcg/inh 1 spray(s) in each nostril once a day for 30 day(s) Not-Taking Famotidine 40 MG 1 tab(s) orally 1 hr prior to shots for 30 days 12/19/2023 Active ZYRTEC 10 mg 1 tab(s) orally once a day Not-Taking AUVI-Q 0.3 mg 0.3 mg intramuscularly once for 1 dose(s) Active SIT (TRADITIONAL) variable per schedule SC per schedule for to be determined Active OLOPATADINE HYDROCHLORIDE 665 mcg/inh 2 spray(s) intranasally 2 times a day for 30 day(s) Active NASAL WASHES N/A as directed intranasally as needed for 30 Active MONTELUKAST SODIUM 10 mg 1 tab(s) orally 30 min prior to shots for 30 day(s) Active predniSONE 20 MG 2 tabs Orally Once a day for 4 days 05/31/2024 Active D3 1000 1000 intl units 1 tab(s) orally once a day for 30 day(s) Active AEROCHAMBER MDI SPACER N/A user with MDI inhalers by mouth q4-6 hours PRN for 30 day(s) Active PROAIR HFA 90 mcg/inh 2 puff(s) inhaled Q4-6 hours, PRN and per the asthma action plan for 30 day(s) Active Encounters Encounter Location Date Provider Diagnosis [facility] [address] [facility] [address] [place] [address] 11/27/2024 Omari Matias Allergic rhinitis du e to pollen J30.1 ; Other allergic rhinitis J30.89 ; Allergic rhinitis due to animal (cat) (dog) hair and dander J30.81 and Other chronic allergic conjunctivitis H10.45 Assessments Encounter Date Diagnosis (ICD Code) Assessment Notes Treatment Notes Treatment Clinical Notes Section Notes 11/27/2024 Allergic rhinitis due to pollen (ICD-10 - J30.1) 11/27/2024 Other allergic rhinitis (ICD-10 - J30.89) 11/27/2024 Allergic rhinitis due to animal (cat) (dog) hair and dander (ICD-10 - J30.81) 11/27/2024 Other chronic allergic conjunctivitis (ICD-10 - H10.45) Plan Of Treatment Next Appt Details Follow Up: As scheduled, [place] son: Provider Name:Faby Corea , 03/21/2025 04:15:00 PM, [address] [employer], [address], [place], [address], Progress Notes * Christal DEDOB:1964 (59 yo F)Acc No.[id number]:11/27/2024 SCIT-Aeroallergen Patient: Christal LONG Provider: Leonie Matias MD :1965 A ge:59 Y S ex:Female Date:11/27/2024 Address:[address] [place], [place] [id number] Pcp:Uvaldo Johnston Subjective: * Chief Complaints: * [...] Information: * Visit Code: * Procedure Codes: 77099 IMMUNOTHERAPY INJECTIONS. * Sign off status: Completed true * Provider: Leonie Matias MD Date: 0 11/27/2024 Generated for Basilia lara/Kelley/eTransmitting on: 0 12/14/2024 08:58 AM CDT History and Physical Notes * [...]
--- OUTSIDE RECORDS SUMMARY | 2024-12-14 08:59 | XMS_ITS | Patient Health Record ---
Author Organization [facility] [employer] [place] ([address]) Address [address] [place] [address] Care Team Providers Care Bindery Machine Tender Name Role Phone Uvaldo Johnston Primary Care Provider UnavailFaby Dsouza Unavailable [phone] Summer Valle Unavailable Unavailable Omari Matias Unavailable [phone] [employer], Provider Unavailable Unavailab le Allergies No Known Allergies Reason For Referral No Information Medications Medication SIG (Take, Route, Frequency, Duration) Notes Start Date End Date Status AUVI-Q 0.3 mg 0.3 mg intramuscular ly once for 1 dose(s) Active SIT (TRADITIONAL) variable per schedule SC per schedule for to be determined Active Auvi-Q 0.3 MG/0.3ML 0.3 mg intramuscular ly once for 1 dose(s) Not-Taking ZyrTEC Allergy 10 MG 1 tab(s) orally onc e a day Active Flonase Allergy Relief 50 MCG/ACT 1 spray(s) in each nostril once a day for 30 day(s) Active D3 1000 1000 intl units 1 tab(s) orally once a day for 30 day(s) Active FLONASE 50 mcg/inh 1 spray(s) in each nostril once a day for 30 day(s) Not-Taking Olopatadine HCl 0.6 % 2 sprays in each n ostril Nasally Twice a day for 30 days Active Famotidine 40 MG 1 tab(s) orally 1 hr prior to shots for 30 days 12/19/2023 Active AEROCHAMBER MDI SPACER N/A user with MDI inhalers by mouth q4-6 hours PRN for 30 day(s) Active FAMOTIDINE 40 mg 1 tab(s) orally 1 hr prior to shots for 30 days 12/19/2023 Not-Taking PROAIR HFA 90 mcg/inh 2 puff(s) inhaled Q4-6 hours, PRN and per the asthma action plan for 30 day(s) Active ZYRTEC 10 mg 1 tab(s) orally once a day Not-Taking NASAL WASHES N/A as directed intranas ally as needed for 30 Active Montelukast Sodium 10 MG 1 tab(s) orally 30 min prior to shots for 30 day(s) Not-Taking MONTELUKAST SODIUM 10 mg 1 tab(s) orally 30 min prior to shots for 30 day(s) Active Vitamin D3 25 MCG (1000 UT) 1 tab(s) orally once a day for 30 day(s) Not-Taking OLOPATADINE HYDROCHLORIDE 665 mcg/inh 2 spray(s) intranasally 2 times a day for 30 day(s) Active predniSONE 20 MG 2 tabs Orally Once a day for 4 days 05/31/2024 Active Immunizations Vaccine Route Administration Date Status Comme nts Covid 19 (Pfizer) Unknown 08/10/2020 Administered Covid 19 (Pfizer) Unknown 08/31/2020 Administered Covid 19 (Pfizer) Unknown 08/31/2020 Administered Flucelvax Unknown 08/22/2019 Administered Fluzone Quadrivalent Unknown 05/30/2017 Administered NOC Flucelevax Quadrivalent Unknown 08/22/2019 Administered NOC Fluzone Quadrivalent Unknown 08/29/2018 Administere d NOC Pneumovax 23 IM Intramuscular 06/30/2021 Administered NOC Pneumovax 23 IM Intramuscular 03/08/2022 Administered NOC Prevnar 20 IM Intramuscular 07/26/2023 Administered Pneumovax 23 IM Intramuscular 03/21/2017 Administered Social History Tobacco Use: Social History Observation Description Date Details (start date - stop date) Never Smoker NA - NA Tobacco Control (Standard) Question Answer Notes Tobacco use: Nonsmoker Problems Problem Type SNOMED Code ICD Code Onset Dates Problem Status W/U Status Risk Notes Problem Wheezing (58548142) Wheezing (R06.2) Active confirmed Problem Chronic allergic conjunctivitis (11503986) Other chronic allergic conjunctivitis (H10.45) Active confirmed Problem Allergic rhinitis caused by pollen (disorder) (08090072) Allergic rhinitis due to pollen (J30.1) Active confirmed Problem Allergic rhinitis caused by animal hair and dander (004654745708537) Allergic rhinitis due to animal (cat) (dog) hair and dander (J30.81) Active confirmed Problem Allergic rhinitis (27208565) Other allergic rhinitis (J30.89) Active confirmed Problem Polyp of nasal cavity (disorder) (263562426) Nasal polyp, unspecified (J33.9) Active confirmed Problem Hypertrophy of nasal turbinates (45498113) Hypertrophy of nasal turbinates (J34.3) Active confirmed Problem Allergic rhinitis caused by pollen (disorder) (14688007) Allergic rhinitis due to pollen (J30.1) Active confirmed Problem Allergic rhinitis caused by animal hair and dander (978748547009379) Allergic rhinitis due to animal (cat) (dog) hair and dander (J30.81) Active confirmed Problem Allergic rhinitis (60615240) Other allergic rhinitis (J30.89) Active confirmed Problem Chronic allergic conjunctivitis (00416934) Other chronic allergic conjunctivitis (H10.45) Active confirmed Problem Chronic sinusitis (35663672) Chronic sinusitis, unspecified (J32.9) Active confirmed Problem Vitamin D deficiency (34033702) Vitamin D deficiency, unspecified (E55.9) Active confirmed Vital Signs Respiratory Rate 17 /min 05/31/2024 Oximetry 98 % 05/31/2024 Blood pressure diastolic 83 mm Hg 05/31/2024 Height 70.25 in 05/31/2024 Blood pressure systolic 131 mm Hg 05/31/2024 Weight 243.4 lbs 05/31/2024 BMI 34.67 kg/m2 05/31/2024 Encounters Encounter Location Date Provider Diagnosis [facility] [address] [place] [address] 02/04/2024 Provider [employer] [facility] [address] [address] 01/31/2024 Omari Matias Allergic rhinitis du e to pollen J30.1 ; Allergic rhinitis due to animal (cat) (dog) hair and dander J30.81 ; Other allergic rhinitis J30.89 and Other chronic allergic conjunctivitis H10.45 [facility] [address] [employer] [address] [place] [address] 02/08/2024 Omari Win Allergic rhinitis du e to pollen J30.1 ; Allergic rhinitis due to animal (cat) (dog) hair and dander J30.81 ; Other allergic rhinitis J30.89 and Other chronic allergic conjunctivitis H10.45 [facility] [address] [place] [address] [employer] [address] [place] [phone] 02/16/2024 Omari Win Allergic rhinitis du e to pollen J30.1 ; Allergic rhinitis due to animal (cat) (dog) hair and dander J30.81 ; Other allergic rhinitis J30.89 and Other chronic allergic conjunctivitis H10.45 [facility] [address] [place] [address] [employer] [address] [address] 02/29/2024 Omari Win Allergic rhinitis du e to pollen J30.1 ; Allergic rhinitis due to animal (cat) (dog) hair and dander J30.81 ; Other allergic rhinitis J30.89 and Other chronic allergic conjunctivitis H10.45 [facility] [address] [place] [address] [employer] [address] [address] 03/05/2024 Omari Florencio Allergic rhinitis du e to pollen J30.1 ; Allergic rhinitis due to animal (cat) (dog) hair and dander J30.81 ; Other allergic rhinitis J30.89 and Other chronic allergic conjunctivitis H10.45 [facility] [address] [place] [address] [employer] [address] [place] [phone] 03/15/2024 Omariyessy Matias Allergic rhinitis du e to pollen J30.1 ; Allergic rhinitis due to animal (cat) (dog) hair and dander J30.81 ; Other allergic rhinitis J30.89 and Other chronic allergic conjunctivitis H10.45 [facility] [address] [place] [address] [employer] [address] [place] [phone] 03/21/2024 Omari Win Allergic rhinitis du e to pollen J30.1 ; Other allergic rhinitis J30.89 ; Allergic rhinitis due to animal (cat) (dog) hair and dander J30.81 and Other chronic allergic conjunctivitis H10.45 [facility] [address] [place] [address] [employer] [address] [place] [phone] 03/27/2024 Omari Win Allergic rhinitis du e to pollen J30.1 ; Other allergic rhinitis J30.89 ; Allergic rhinitis due to animal (cat) (dog) hair and dander J30.81 and Other chronic allergic conjunctivitis H10.45 [facility] [address] [place] [address] [employer] [address] [address] 04/09/2024 Omari Matias Allergic rhinitis du e to pollen J30.1 ; Other allergic rhinitis J30.89 ; Allergic rhinitis due to animal (cat) (dog) hair and dander J30.81 and Other chronic allergic conjunctivitis H10.45 [facility] [address] [place] [address] [employer] [address] [address] 04/17/2024 Omari Matias Allergic rhinitis du e to pollen J30.1 ; Other allergic rhinitis J30.89 ; Allergic rhinitis due to animal (cat) (dog) hair and dander J30.81 and Other chronic allergic conjunctivitis H10.45 [facility] [address] [place] [phone] 05/02/2024 Omari Matias Allergic rhinitis du e to pollen J30.1 ; Other allergic rhinitis J30.89 ; Allergic rhinitis due to animal (cat) (dog) hair and dander J30.81 and Other chronic allergic conjunctivitis H10.45 [facility] [address] [place] [phone] 05/31/2024 Faby Young Allergic rhinitis du e to pollen J30.1 ; Acute upper respiratory infection, unspecified J06.9 ; Allergic rhinitis due to animal (cat) (dog) hair and dander J30.81 ; Other allergic rhinitis J30.89 ; Other chronic allergic conjunctivitis H10.45 ; Wheezing R06.2 ; Chronic sinusitis, unspecified J32.9 and Vitamin D deficiency, unspecified E55.9 [facility] [address] [place] [phone] 07/16/2024 Omari Matias Allergic rhinitis du e to pollen J30.1 ; Other allergic rhinitis J30.89 ; Allergic rhinitis due to animal (cat) (dog) hair and dander J30.81 and Other chronic allergic conjunctivitis H10.45 [facility] [address] [place] [address], [place] [address] 07/24/2024 Omari Florencio Allergic rhinitis du e to pollen J30.1 ; Other allergic rhinitis J30.89 ; Allergic rhinitis due to animal (cat) (dog) hair and dander J30.81 and Other chronic allergic conjunctivitis H10.45 [facility] [address] [place] [phone] 08/20/2024 Omari Win Allergic rhinitis du e to pollen J30.1 ; Other allergic rhinitis J30.89 ; Allergic rhinitis due to animal (cat) (dog) hair and dander J30.81 and Other chronic allergic conjunctivitis H10.45 [facility] [address] [place] [phone] 08/28/2024 Omari Florencio Allergic rhinitis du e to pollen J30.1 ; Other allergic rhinitis J30.89 ; Allergic rhinitis due to animal (cat) (dog) hair and dander J30.81 and Other chronic allergic conjunctivitis H10.45 [facility] [address] [place] [phone] 09/05/2024 Omari Florencio Allergic rhinitis du e to pollen J30.1 ; Other allergic rhinitis J30.89 ; Allergic rhinitis due to animal (cat) (dog) hair and dander J30.81 and Other chronic allergic conjunctivitis H10.45 [facility] [address] [place] [phone] 09/27/2024 Omariyessy Matias Allergic rhinitis du e to pollen J30.1 ; Other allergic rhinitis J30.89 ; Allergic rhinitis due to animal (cat) (dog) hair and dander J30.81 and Other chronic allergic conjunctivitis H10.45 [facility] [address] [place] [address] [place] [phone] 10/30/2024 Omariyessy Matias Allergic rhinitis du e to pollen J30.1 ; Other allergic rhinitis J30.89 ; Allergic rhinitis due to animal (cat) (dog) hair and dander J30.81 and Other chronic allergic conjunctivitis H10.45 [facility] [address] [place] [address] [employer] [address] [place] [phone] 11/27/2024 Omari Matias Allergic rhinitis du e to pollen J30.1 ; Other allergic rhinitis J30.89 ; Allergic rhinitis due to animal (cat) (dog) hair and dander J30.81 and Other chronic allergic conjunctivitis H10.45 [facility] [address] [phone] 12/28/2023 Omari Matias Assessments Encounter Date Diagnosis (ICD Code) Assessment Notes Treatment Notes Treatment Clinical Notes Section Notes 01/31/2024 Allergic rhinitis due to pollen (ICD-10 - J30.1) 02/08/2024 Allergic rhinitis due to pollen (ICD-10 - J30.1) 02/16/2024 Allergic rhinitis due to pollen (ICD-10 - J30.1) 02/29/2024 Allergic rhinitis due to pollen (ICD-10 - J30.1) 03/05/2024 Allergic rhinitis due to pollen (ICD-10 - J30.1) 03/27/2024 Allergic rhinitis due to pollen (ICD-10 - J30.1) 03/27/2024 Other allergic rhinitis (ICD-10 - J30.89) 04/09/2024 Allergic rhinitis due to pollen (ICD-10 - J30.1) 04/09/2024 Other allergic rhinitis (ICD-10 - J30.89) 04/17/2024 Allergic rhinitis due to pollen (ICD-10 - J30.1) 04/17/2024 Other allergic rhinitis (ICD-10 - J30.89) 05/02/2024 Allergic rhinitis due to pollen (ICD-10 - J30.1) 05/02/2024 Other allergic rhinitis (ICD-10 - J30.89) 05/31/2024 Acute upper respiratory infection, unspecified (ICD-10 - J06.9) Christal has been dealing with a URI x 10 days now that has gone to her chest -likely has bronchitis. start steroids x 5 days, first dose given in office. Discussed possible side effects -continue TANNA 05/31/2024 Allergic rhinitis due to pollen (ICD-10 - J30.1) Christal clearly suffers from atopic disease based upon our prior skin testing and history. Accordingly, we have encouraged her aggressive medication regimen, discussed nasal washes and allergy-specific avoidance measures. She is tolerating SCIT, now at monthly maintenance dosing and very pleased with current symptom control. Was on daily Singulair but no longer requires, just taking Zyrtec daily. Dosing tolerated w/o issues. She continues pre-medicating with Zyrtec, and Singulair prior to shots. For PND she found Olopatadine 2 sprays helpful. Jenise discussed reformulation as she is still symptomatic and still dependent on allergy meds. She wants to consider options and see how the year goe 07/16/2024 Allergic rhinitis due to pollen (ICD-10 - J30.1) 07/16/2024 Other allergic rhinitis (ICD-10 - J30.89) 07/24/2024 Allergic rhinitis due to pollen (ICD-10 - J30.1) 07/24/2024 Other allergic rhinitis (ICD-10 - J30.89) 11/27/2024 Allergic rhinitis due to pollen (ICD-10 - J30.1) 11/27/2024 Other allergic rhinitis (ICD-10 - J30.89) 09/27/2024 Allergic rhinitis due to pollen (ICD-10 - J30.1) 09/27/2024 Other allergic rhinitis (ICD-10 - J30.89) 09/05/2024 Allergic rhinitis due to pollen (ICD-10 - J30.1) 09/05/2024 Other allergic rhinitis (ICD-10 - J30.89) 08/28/2024 Allergic rhinitis due to pollen (ICD-10 - J30.1) 08/28/2024 Other allergic rhinitis (ICD-10 - J30.89) 08/20/2024 Allergic rhinitis due to pollen (ICD-10 - J30.1) 08/20/2024 Other allergic rhinitis (ICD-10 - J30.89) 03/21/2024 Allergic rhinitis due to pollen (ICD-10 - J30.1) 03/21/2024 Other allergic rhinitis (ICD-10 - J30.89) 03/15/2024 Allergic rhinitis due to pollen (ICD-10 - J30.1) 10/30/2024 Allergic rhinitis due to pollen (ICD-10 - J30.1) 10/30/2024 Other allergic rhinitis (ICD-10 - J30.89) 10/30/2024 Allergic rhinitis due to animal (cat) (dog) hair and dander (ICD-10 - J30.81) 03/15/2024 Allergic rhinitis due to animal (cat) (dog) hair and dander (ICD-10 - J30.81) 03/21/2024 Allergic rhinitis due to animal (cat) (dog) hair and dander (ICD-10 - J30.81) 08/20/2024 Allergic rhinitis due to animal (cat) (dog) hair and dander (ICD-10 - J30.81) 08/28/2024 Allergic rhinitis due to animal (cat) (dog) hair and dander (ICD-10 - J30.81) 09/05/2024 Allergic rhinitis due to animal (cat) (dog) hair and dander (ICD-10 - J30.81) 09/27/2024 Allergic rhinitis due to animal (cat) (dog) hair and dander (ICD-10 - J30.81) 11/27/2024 Allergic rhinitis due to animal (cat) (dog) hair and dander (ICD-10 - J30.81) 07/24/2024 Allergic rhinitis due to animal (cat) (dog) hair and dander (ICD-10 - J30.81) 07/16/2024 Allergic rhinitis due to animal (cat) (dog) hair and dander (ICD-10 - J30.81) 05/31/2024 Allergic rhinitis due to animal (cat) (dog) hair and dander (ICD-10 - J30.81) Follow allergen avoidance, meds and continue SCIT as an adjunctive treatment to current regimen 05/02/2024 Allergic rhinitis due to animal (cat) (dog) hair and dander (ICD-10 - J30.81) 04/17/2024 Allergic rhinitis due to animal (cat) (dog) hair and dander (ICD-10 - J30.81) 04/09/2024 Allergic rhinitis due to animal (cat) (dog) hair and dander (ICD-10 - J30.81) 03/27/2024 Allergic rhinitis due to animal (cat) (dog) hair and dander (ICD-10 - J30.81) 03/05/2024 Allergic rhinitis due to animal (cat) (dog) hair and dander (ICD-10 - J30.81) 02/29/2024 Allergic rhinitis due to animal (cat) (dog) hair and dander (ICD-10 - J30.81) 02/16/2024 Allergic rhinitis due to animal (cat) (dog) hair and dander (ICD-10 - J30.81) 02/08/2024 Allergic rhinitis due to animal (cat) (dog) hair and dander (ICD-10 - J30.81) 01/31/2024 Allergic rhinitis due to animal (cat) (dog) hair and dander (ICD-10 - J30.81) 01/31/2024 Other allergic rhinitis (ICD-10 - J30.89) 02/08/2024 Other allergic rhinitis (ICD-10 - J30.89) 02/16/2024 Other allergic rhinitis (ICD-10 - J30.89) 02/29/2024 Other allergic rhinitis (ICD-10 - J30.89) 03/05/2024 Other allergic rhinitis (ICD-10 - J30.89) 03/27/2024 Other chronic allergic conjunctivitis (ICD-10 - H10.45) 04/09/2024 Other chronic allergic conjunctivitis (ICD-10 - H10.45) 04/17/2024 Other chronic allergic conjunctivitis (ICD-10 - H10.45) 05/02/2024 Other chronic allergic conjunctivitis (ICD-10 - H10.45) 05/31/2024 Other allergic rhinitis (ICD-10 - J30.89) Follow allergen avoidance, meds and continue SCIT as an adjunctive treatment to current regimen 07/16/2024 Other chronic allergic conjunctivitis (ICD-10 - H10.45) 07/24/2024 Other chronic allergic conjunctivitis (ICD-10 - H10.45) 11/27/2024 Other chronic allergic conjunctivitis (ICD-10 - H10.45) 09/27/2024 Other chronic allergic conjunctivitis (ICD-10 - H10.45) 09/05/2024 Other chronic allergic conjunctivitis (ICD-10 - H10.45) 08/28/2024 Other chronic allergic conjunctivitis (ICD-10 - H10.45) 08/20/2024 Other chronic allergic conjunctivitis (ICD-10 - H10.45) 03/21/2024 Other chronic allergic conjunctivitis (ICD-10 - H10.45) 10/30/2024 Other chronic allergic conjunctivitis (ICD-10 - H10.45) 03/15/2024 Other allergic rhinitis (ICD-10 - J30.89) 03/15/2024 Other chronic allergic conjunctivitis (ICD-10 - H10.45) 05/31/2024 Other chronic allergic conjunctivitis (ICD-10 - H10.45) Given ocular signs and symptoms I encouraged allergy avoidance measures and meds as above. If symptoms persist, consider adding additional medications including intraocular antihistamine/mast cell stabilizer, PRN and continue SCIT as an adjunctive measure 03/05/2024 Other chronic allergic conjunctivitis (ICD-10 - H10.45) 02/29/2024 Other chronic allergic conjunctivitis (ICD-10 - H10.45) 02/16/2024 Other chronic allergic conjunctivitis (ICD-10 - H10.45) 02/08/2024 Other chronic allergic conjunctivitis (ICD-10 - H10.45) 01/31/2024 Other chronic allergic conjunctivitis (ICD-10 - H10.45) 05/31/2024 Wheezing (ICD-10 - R06.2) Historical childhood RAD now only uses TANNA PRN for wheezing in the setting of URIs. As above, received steroids in 09/2019 and now today. No wheezing on exam. Continue to have TANNA on hand and use per AAP and spacer 05/31/2024 Chronic sinusitis, unspecified (ICD-10 - J32.9) Had prior FESS with polyp resection performed by Dr. Valle and recently had another sinus surgery by Dr. Taylor in 04/2023. Continue treatment for atopic disease as above. Despite several Pneumovax-23 vaccinations she still has inadequate protection, c/w SADNI. Discussed treatment options including prophylactic abx and IVIG. She has been in good health, will continue to monitor her frequency of infection. She last received a booster in July and will have recheck of labs now 05/31/2024 Vitamin D deficiency, unspecified (ICD-10 - E55.9) Continue supplementation 02/20/2024 Other 05/10/2024 Other 01/31/2024 Other 02/08/2024 Other 02/16/2024 Other 02/29/2024 Other 03/05/2024 Other 03/15/2024 Other 05/31/2024 Other Plan Of Treatment Pending Test Test Name Order Date -Pneumococcal Ab (23 Serotype) Next Appt Details Provider Name:Faby Corea , 03/21/2025 04:15:00 PM, [address] [facility], [address], [place], [address], Insurance Providers Payer Name Payer Address Payer Phone Subscriber Number Group Number Insured Name Patient Relationship to Insured Coverage Start Date Coverage End Date [employer] [address] [place] [address] [id number] Christal Ramirez Self - patient is the insured Medical (General) History Medical History History ICD Code Chronic sinusitis, unspecified Allergic rhinitis due to pollen Allergic rhinitis due to animal (cat) (d og) hair and dander Other allergic rhinitis Nasal polyp, unspecified Wheezing Vitamin D deficiency, unspecified Surgical History Surgery Date(Month/Year) Sinus Surgery 05/02/2017 Lipoma resection from back 12/2019 Sinus surgery 05/02/2023
--- OUTSIDE RECORDS SUMMARY | 2024-12-14 08:59 | XMS_ITS | Clinical Summary ---
Author Organization [facility] Address [address] [place] [address] Care Team Providers Care Supply And Distribution Manager Name Role Phone None, Provider MD Primary Care Provider Unavaila ble Social History Tobacco Use Types Packs/Day Years Used Date Smoking Tobacco: Never Assessed Comments Unknown Sex and Gender Information Value Date Recorded Sex Assigned at Not on file Legal Sex Female 9:12 AM CDT Gender Identity Not on file Sexual Orientation Not on file Plan of Treatment Health Maintenance Due Date Last Done Comments Cervical Cancer Screening Pa p Smear (Age 30 to 64) Every 3 Years 1966 Colorectal Cancer Screening Colonoscopy (10 Years) 1966 Annual Physical 1969 Hepatitis C 1984 DTaP, Tdap and Td Vaccines ( 1 - Tdap) 1985 Hepatitis B Vaccines (1 of 3 - 19+ 3-dose series) 1985 Cervical Cancer Screening Pa p with HPV Testing (Age 30 to 64) Every 5 Years 1996 Cervical Cancer Screening with HPV 1996 Mammogram Screening 2006 Pneumococcal Vaccine: 50+ Ye ars (1 of 1 - PCV) 2016 Zoster Vaccines (1 of 2) 2016 COVID-19 Vaccine (2023-2 5 season) 2024 Meningococcal B Vaccine Aged Out No l onger eligible based on patient's age to complete this topic Meningococcal Vaccine Aged Out No vikas hillary eligible based on patient's age to complete this topic RSV Immunizations Under 20 Months Aged Out No longer eligible based on patient's age to complete this topic [facility] Care Teams Supply And Distribution Manager Relationship Specialty Start Date End Date None, Provider, PCP - General UNKNOWN PHYSICIAN SPECIALTY 01/05/23
== END 2024-12-14 08:48 | disposition home or self-care (01) ==
LOC: ANHIMG 08:48
PROVIDERS: PCP Family Medicine; Visit Provider Obstetrics & Gynecology
DX: Z12.31 Encounter for screening mammogram for malignant neoplasm of breast (principal); R92.8 Other abnormal and inconclusive findings on diagnostic imaging of breast
CPT/HCPCS: 77063; 77067

== ENCOUNTER 2025-01-24 12:52 | Outpatient (CLI) | payer BC, SELFPAY ==
--- NOTE | ~2025-01-24 | MMUS_ITS ---
Examination: MM diagnostic DAVID RT W itz and US breast RT limited INDICATION: 51-year old female; BI-RADS 0, right breast asymmetry COMPARISON: 12/14/2024 TECHNIQUE: Digital breast tomosynthesis True lateral and spot compression CC and MLO views of the RIG HT breast were obtained with computer-aided detection to assist in interpretation of the study. FINDINGS: There are scattered areas of fibroglandular density. The asymmetry of concern in the upper outer right breast persists as a mass with ill-defined margins. Ultrasound was performed for further evaluation. RIGHT BREAST ULTRASOUND FINDINGS: Targeted evaluation of the area of concern was completed. There is a 0.9 x 0.9 x 0.9 cm subtle Isoech oic mass at 10:00 location 1 cm from the nipple in the RIGHT breast that may correlates to the area o f Mammographic finding. In addition, there is a 0.5 cm cyst seen at 10:00 subareolar location. IMPRESSION: Suspicious right breast mass upper outer quadrant location that is best seen on the mammography exami [facility]. Recommend biopsy under stereotactic guidance. RECOMMENDATION: Stereotactic guided core needle biopsy right breast mass. BI-RADS 4, SUSPICIOUS Reviewed, dictated and finalized at location B. IMPRESSION: Suspicious right breast mass upper outer quadrant location that is best seen on the mammography examination. Recommend biopsy under stereotactic guidance. RECOMMENDATION: Stereotactic guided core needle biopsy right breast mass. BI-RADS 4, SUSPICIOUS
--- OUTSIDE RECORDS SUMMARY | 2025-01-24 13:30 | XMS_ITS | Clinical Summary ---
Author Organization [facility] Address [address] [place] [address] Care Team Providers Care Management Aide Name Role Phone Unavailable Primary Care Provider Unavailabl e Source Comments [facility],non-owned Affiliates and Associated Physician Practices is amultiple site organization consisting of ambulatory clinics and hospital sitesin [place], [place], [place] and [place]. This disclosure is being madepursuant to the Care Everywhere program and may not contain all information available regarding this patient. 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 Gender Identity Not on file Sexual Orientation Not on file Last Filed Vital Signs Vital Sign Reading Time Taken Comments Blood Pressure 97/70 10/01/2009 11:30 AM RESISTOR TESTING MACHINE OPERATOR Pulse 64 10/01/2009 11:30 AM RESISTOR TESTING MACHINE OPERATOR Temperature - - Respiratory Rate 16 10/01/2009 9:43 AM RESISTOR TESTING MACHINE OPERATOR Oxygen Saturation 95% 10/01/2009 11:00 AM RESISTOR TESTING MACHINE OPERATOR Inhaled Oxygen Concentration - - Weight 93 kg (205 lb) 10/01/2009 9:43 AM RESISTOR TESTING MACHINE OPERATOR Height 177.8 cm (5' 10) 10/01/2009 9:43 AM RESISTOR TESTING MACHINE OPERATOR Body Mass Index 29.41 10/01/2009 9:43 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
--- OUTSIDE RECORDS SUMMARY | 2025-01-24 13:31 | XMS_ITS | Patient Health Record ---
Author Organization [facility] [employer] [place] ([address]) Address [address] [place] [address] Care Team Providers Care Evaluation Specialist Name Role Phone Uvaldo Johnston Primary Care Provider UnavailFaby Dsouza Unavailable [phone] Summer Valle Unavailable Unavailable Omari Matias Unavailable [phone] Joshua, Provider Unavailable Unavailab le Allergies No Known Allergies Reason For Referral No Information Medications Medication SIG (Take, Route, Frequency, Duration) Notes Start Date End Date Status NASAL WASHES N/A as directed intranas ally as needed for 30 Active Montelukast Sodium 10 MG 1 tab(s) orally 30 min prior to shots for 30 day(s) Not-Taking MONTELUKAST SODIUM 10 mg 1 tab(s) orally 30 min prior to shots for 30 day(s) Active Vitamin D3 25 MCG (1000 UT) 1 tab(s) orally once a day for 30 day(s) Not-Taking AEROCHAMBER MDI SPACER N/A user with MDI [...] once a day for 30 day(s) Not-Taking D3 1000 1000 intl units 1 tab(s) orally once a day for 30 day(s) Active Famotidine 40 MG 1 tab(s) orally 1 hr prior to shots for 30 days 12/19/2023 Active ZyrTEC Allergy 10 MG 1 tab(s) orally onc e a day Active Flonase Allergy Relief 50 MCG/ACT 1 spray(s) in each nostril once a day for 30 day(s) Active OLOPATADINE HYDROCHLORIDE 665 mcg/inh 2 spray(s) intranasally 2 times a day for 30 day(s) Active Olopatadine HCl 0.6 % 2 sprays in each n ostril Nasally Twice a day for 30 days Active AUVI-Q 0.3 mg 0.3 mg intramuscular ly once for 1 dose(s) Active predniSONE 20 MG 2 tabs Orally Once a day for 4 days 05/31/2024 Active SIT (TRADITIONAL) variable per schedule SC per schedule for to be determined Active Auvi-Q 0.3 MG/0.3ML 0.3 mg intramuscular ly once for 1 dose(s) Not-Taking Immunizations Vaccine Route Administration Date Status Comme [...] Status W/U Status Risk Notes Problem Wheezing (56937090) Wheezing (R06.2) Active confirmed Problem Chronic allergic conjunctivitis (30570957) Other chronic allergic conjunctivitis (H10.45) Active confirmed Problem Allergic rhinitis caused by pollen (disorder) (32096812) Allergic rhinitis due to pollen (J30.1) Active confirmed Problem Allergic rhinitis caused by animal hair and dander (442340295555468) Allergic rhinitis due to animal (cat) (dog) hair and dander (J30.81) Active confirmed Problem Allergic rhinitis (14311002) Other allergic rhinitis (J30.89) Active confirmed Problem Polyp of nasal cavity (disorder) (829833691) Nasal polyp, unspecified (J33.9) Active confirmed Problem Hypertrophy of nasal turbinates (58261541) Hypertrophy of nasal turbinates (J34.3) Active confirmed Problem Allergic rhinitis caused by pollen (disorder) (34352654) Allergic rhinitis due to pollen (J30.1) Active confirmed Problem Allergic rhinitis caused by animal hair and dander (089049732904344) Allergic rhinitis due to animal (cat) (dog) hair and dander (J30.81) Active confirmed Problem Allergic rhinitis (11714798) Other allergic rhinitis (J30.89) Active confirmed Problem Chronic allergic conjunctivitis (70562158) Other chronic allergic conjunctivitis (H10.45) Active confirmed Problem Chronic sinusitis (20376626) Chronic sinusitis, unspecified (J32.9) Active confirmed Problem Vitamin D deficiency (62232916) Vitamin D deficiency, unspecified (E55.9) Active confirmed Vital Signs Respiratory Rate 17 /min 05/31/2024 Oximetry 98 % 05/31/2024 Blood pressure diastolic 83 mm Hg 05/31/2024 Height 70.25 in 05/31/2024 Blood pressure systolic 131 mm Hg 05/31/2024 Weight 243.4 lbs 05/31/2024 BMI 34.67 kg/m2 05/31/2024 Encounters Encounter Location Date Provider Diagnosis [facility] [address] [place] [address] 02/04/2024 [facility] [address] [address] 01/31/2024 Omari Matias Allergic rhinitis du e to pollen J30.1 ; Allergic rhinitis due to animal (cat) (dog) hair and dander J30.81 ; Other allergic rhinitis J30.89 and Other chronic allergic conjunctivitis H10.45 [facility] [address] [place] [address] 02/08/2024 Omari Win Allergic rhinitis du e to pollen J30.1 ; Allergic rhinitis due to animal (cat) (dog) hair and dander J30.81 ; Other allergic rhinitis J30.89 and Other chronic allergic conjunctivitis H10.45 [facility] [address] [place] [address] [employer] [address] [place] [address] 02/16/2024 Omari Win Allergic rhinitis du e to pollen J30.1 ; Allergic rhinitis due to animal (cat) (dog) hair and dander J30.81 ; Other allergic rhinitis J30.89 and Other chronic allergic conjunctivitis H10.45 [facility] [address] [place] [address] [employer] [address] [address] 02/29/2024 Omari Win Allergic rhinitis du e to pollen J30.1 ; Allergic rhinitis due to animal (cat) (dog) hair and dander J30.81 ; Other allergic rhinitis J30.89 and Other chronic allergic conjunctivitis H10.45 [facility] [address] [place] [address] [employer] [address] [address] 03/05/2024 Omari Florencio Allergic rhinitis du e to pollen J30.1 ; Allergic rhinitis due to animal (cat) (dog) hair and dander J30.81 ; Other allergic rhinitis J30.89 and Other chronic allergic conjunctivitis H10.45 [facility] [address] [place] [address] [employer] [address] [place] [address] 03/15/2024 Omariyessy Matias Allergic rhinitis du e to pollen J30.1 ; Allergic rhinitis due to animal (cat) (dog) hair and dander J30.81 ; Other allergic rhinitis J30.89 and Other chronic allergic conjunctivitis H10.45 [facility] [address] [place] [address] [employer] [address] [place] [address] 03/21/2024 Omari Win Allergic rhinitis du e to pollen J30.1 ; Other allergic rhinitis J30.89 ; Allergic rhinitis due to animal (cat) (dog) hair and dander J30.81 and Other chronic allergic conjunctivitis H10.45 [facility] [address] [place] [address] [employer] [address] [place] [address] 03/27/2024 Omari Win Allergic rhinitis du e to pollen J30.1 ; Other allergic rhinitis J30.89 ; Allergic rhinitis due to animal (cat) (dog) hair and dander J30.81 and Other chronic allergic conjunctivitis H10.45 [facility] [address] [place] [address] [employer] [address] [address] 04/09/2024 Omari Matias Allergic rhinitis du e to pollen J30.1 ; Other allergic rhinitis J30.89 ; Allergic rhinitis due to animal (cat) (dog) hair and dander J30.81 and Other chronic allergic conjunctivitis H10.45 [facility] [address] [place] [address] [employer] [address] [address] 04/17/2024 Omari Matias Allergic rhinitis du e to pollen J30.1 ; Other allergic rhinitis J30.89 ; Allergic rhinitis due to animal (cat) (dog) hair and dander J30.81 and Other chronic allergic conjunctivitis H10.45 [facility] [address] [place] [address] 05/02/2024 Omari Matias Allergic rhinitis du e to pollen J30.1 ; Other allergic rhinitis J30.89 ; Allergic rhinitis due to animal (cat) (dog) hair and dander J30.81 and Other chronic allergic conjunctivitis H10.45 [facility] [address] [place] [address] 05/31/2024 Faby Young Allergic rhinitis du e to pollen J30.1 ; Acute upper respiratory infection, unspecified J06.9 ; Allergic rhinitis due to animal (cat) (dog) hair and dander J30.81 ; Other allergic rhinitis J30.89 ; Other chronic allergic conjunctivitis H10.45 ; Wheezing R06.2 ; Chronic sinusitis, unspecified J32.9 and Vitamin D deficiency, unspecified E55.9 [facility] [address] [place] [address] 07/16/2024 Omari Matias Allergic rhinitis du e to pollen J30.1 ; Other allergic rhinitis J30.89 ; Allergic rhinitis due to animal (cat) (dog) hair and dander J30.81 and Other chronic allergic conjunctivitis H10.45 [facility] [address] [place] [address], [place] [address] 07/24/2024 Omari Florencio Allergic rhinitis du e to pollen J30.1 ; Other allergic rhinitis J30.89 ; Allergic rhinitis due to animal (cat) (dog) hair and dander J30.81 and Other chronic allergic conjunctivitis H10.45 [facility] [address] [place] [address] 08/20/2024 Omari Win Allergic rhinitis du e to pollen J30.1 ; Other allergic rhinitis J30.89 ; Allergic rhinitis due to animal (cat) (dog) hair and dander J30.81 and Other chronic allergic conjunctivitis H10.45 [facility] [address] [place] [address] 08/28/2024 Omari Florencio Allergic rhinitis du e to pollen J30.1 ; Other allergic rhinitis J30.89 ; Allergic rhinitis due to animal (cat) (dog) hair and dander J30.81 and Other chronic allergic conjunctivitis H10.45 [facility] [address] [place] [address] 09/05/2024 Omari Florencio Allergic rhinitis du e to pollen J30.1 ; Other allergic rhinitis J30.89 ; Allergic rhinitis due to animal (cat) (dog) hair and dander J30.81 and Other chronic allergic conjunctivitis H10.45 [facility] [address] [place] [phone] 09/27/2024 Omariyessy Matias Allergic rhinitis du e to pollen J30.1 ; Other allergic rhinitis J30.89 ; Allergic rhinitis due to animal (cat) (dog) hair and dander J30.81 and Other chronic allergic conjunctivitis H10.45 [facility] [address] [place] [address] [place] [address] 10/30/2024 Omariyessy Matias Allergic rhinitis du e to pollen J30.1 ; Other allergic rhinitis J30.89 ; Allergic rhinitis due to animal (cat) (dog) hair and dander J30.81 and Other chronic allergic conjunctivitis H10.45 [facility] [address] [place] [address] [employer] [address] [place] [address] 11/27/2024 Omari Matias Allergic rhinitis du e to pollen J30.1 ; Other allergic rhinitis J30.89 ; Allergic rhinitis due to animal (cat) (dog) hair and dander J30.81 and Other chronic allergic conjunctivitis H10.45 [facility] [address] [address] 01/07/2025 Omari Matias Allergic rhinitis du e to [...] rhinitis due to pollen (ICD-10 - J30.1) 03/15/2024 Allergic rhinitis due to pollen (ICD-10 - J30.1) 03/21/2024 Allergic rhinitis due to pollen (ICD-10 - J30.1) 03/21/2024 Other allergic rhinitis (ICD-10 - J30.89) 03/27/2024 Allergic rhinitis due to pollen (ICD-10 [...] 07/24/2024 Other allergic rhinitis (ICD-10 - J30.89) 08/20/2024 Allergic rhinitis due to pollen (ICD-10 - J30.1) 08/20/2024 Other allergic rhinitis (ICD-10 - J30.89) 08/28/2024 Allergic rhinitis due to pollen (ICD-10 - J30.1) 08/28/2024 Other allergic rhinitis (ICD-10 - J30.89) 09/05/2024 Allergic rhinitis due to pollen (ICD-10 - J30.1) 09/05/2024 Other allergic rhinitis (ICD-10 - J30.89) 09/27/2024 Allergic rhinitis due to pollen (ICD-10 - J30.1) 09/27/2024 Other allergic rhinitis (ICD-10 - J30.89) 10/30/2024 Allergic rhinitis due to pollen (ICD-10 - J30.1) 10/30/2024 Other allergic rhinitis (ICD-10 - J30.89) 11/27/2024 Allergic rhinitis due to pollen (ICD-10 - J30.1) 11/27/2024 Other allergic rhinitis (ICD-10 - J30.89) 01/07/2025 Allergic rhinitis due to pollen (ICD-10 - J30.1) 01/07/2025 Other allergic rhinitis (ICD-10 - J30.89) 01/07/2025 Allergic rhinitis due to animal (cat) (dog) hair and dander (ICD-10 - J30.81) 11/27/2024 Allergic rhinitis due to animal (cat) (dog) hair and dander (ICD-10 - J30.81) 10/30/2024 Allergic rhinitis due to animal (cat) [...] 03/05/2024 Other allergic rhinitis (ICD-10 - J30.89) 03/21/2024 Other chronic allergic conjunctivitis (ICD-10 - H10.45) 03/27/2024 Other chronic allergic conjunctivitis (ICD-10 - H10.45) 04/09/2024 Other chronic allergic conjunctivitis (ICD-10 - H10.45) 04/17/2024 Other chronic allergic conjunctivitis (ICD-10 - H10.45) 05/02/2024 Other chronic allergic conjunctivitis (ICD-10 - H10.45) 03/15/2024 Other allergic rhinitis (ICD-10 - J30.89) 05/31/2024 Other allergic rhinitis (ICD-10 - J30.89) [...] Other chronic allergic conjunctivitis (ICD-10 - H10.45) 01/07/2025 Other chronic allergic conjunctivitis (ICD-10 - H10.45) 05/31/2024 Other chronic allergic conjunctivitis (ICD-10 - H10.45) Given ocular signs and symptoms I encouraged allergy avoidance measures and meds as above. If symptoms persist, consider adding additional medications including intraocular antihistamine/mast cell stabilizer, PRN and continue SCIT as an adjunctive measure 03/15/2024 Other chronic allergic conjunctivitis (ICD-10 - H10.45) 02/29/2024 Other chronic allergic conjunctivitis (ICD-10 - H10.45) 03/05/2024 Other chronic allergic conjunctivitis (ICD-10 - [...] Ab (23 Serotype) Next Appt Details Provider Name:Omari Matias , 02/04/2025 04:50:00 PM, [address], [address], Provider Name:Faby Corea , 03/21/2025 04:15:00 PM, [address], [place], [address], Insurance Providers Payer Name Payer Address Payer Phone Subscriber Number Group Number Insured Name Patient Relationship to Insured Coverage Start Date Coverage End Date [place] [address] [place] [address] [id number] Christal Ramirez Self - patient is the [...]
--- OUTSIDE RECORDS SUMMARY | 2025-01-24 13:31 | XMS_ITS ---
Author Organization [facility] [place] ([address]) Address [address] [place] [address] Care Team Providers Care Neckties Painter Name Role Phone Uvaldo Johnston Primary Care Provider Faby Ellison [phone] Summer Valle Unavailable Unavailable REASON FOR VISIT ARC follow-up Encounters Encounter Location Date Provider Diagnosis [facility] [address] [place] [address] 12/13/2024 Faby Corea Plan Of Treatment Next Appt Details Provider Name:Omari Matias , 02/04/2025 04:50:00 PM, [address] [employer] [facility], [address], [place], [address], Provider Name:Faby Corea , 03/21/2025 04:15:00 PM, [address] [employer], [facility] [address], [place], [address], Progress Notes * RICHARDMELVINChristalDOB:1964 (59 yo F)Acc No.[id number]:12/13/2024 Progress Notes Patient: Christal LONG Provider: Linnea Corea PA-C :1965 A ge:59 Y S ex:Female Date:12/13/2024 Address:[address] [facility] Pcp:Uvaldo Johnston Subjective: * Chief Complaints: * 1 . ARC follow-up. * Medical History: Objective: * Vitals: Assessment: Plan: * Treatment: * Billing Information: * Visit Code: * Procedure Codes: * Electronic signature of Andrea Corea PA-C, [facility] on 01/24/2025 at 01:31 PM CDT Sign off status: Pending * Provider: Linnea Corea PA-C Date: 0 12/13/2024 Generated for Basilia lara/Kelley/Shanda on: 01/24/2025 01:31 PM CDT
== END 2025-01-24 12:53 | disposition home or self-care (01) ==
LOC: ANHIMG 12:56
PROVIDERS: PCP Family Medicine; Visit Provider Obstetrics & Gynecology
DX: R92.8 Other abnormal and inconclusive findings on diagnostic imaging of breast (principal)
CPT/HCPCS: 76642; 77061; 77065; G0279

== ENCOUNTER 2025-06-21 07:50 | Outpatient (CLI) | payer BC, SELFPAY ==
--- OUTSIDE RECORDS SUMMARY | 2024-12-13 12:30 | XMS_ITS ---
Author Organization [facility] [employer] [place] ([address]) Address [address] [place] [address] Care Team Providers Care Flute Polisher Name Role Phone Preston Uvaldo Primary Care Provider UnavailFaby Dsouza Unavailable [phone] Summer Valle Unavailable Unavailable REASON FOR VISIT ARC follow-up Social History Sex Assigned At : Social History Observation Description Sex Assigned At Female Encounters Encounter Location Date Provider Diagnosis [facility] [address] [place] [address] 12/13/2024 Faby Corea Plan Of Treatment Next Appt Details Provider Name:Omari HJackeline Matias , 07/15/2025 05:00:00 PM, [address], [place], [address], Provider Name:Faby Corea , 10/24/2025 07:30:00 AM, [address], [place], [address], Progress Notes * Christal DEDOB:1964 (60 yo F)Acc No.[id number]:12/13/2024 Progress Notes Patient: Marley MURRIETA Christal Provider: Linnea Corea PA-C :1965 A ge:59 Y S ex:Female Date:12/13/2024 Address:[address] [place], [place] [id number] Pcp:Uvaldo Johnston Subjective: * Chief Complaints: * 1 . ARC follow-up. * Medical History: Objective: * Vitals: Assessment: Plan: * Treatment: * Billing Information: * Visit Code: * Procedure Codes: * Electronic signature of Andrea Corea PA-C [facility] on 06/21/2025 at 07:55 AM CDT Sign off status: Pending * Provider: Linnea Corea PA-C Date: 0 12/13/2024 Generated for Basilia lara/Kelley/Mikeyransmitting on: 1 07:55 AM CDT
--- OUTSIDE RECORDS SUMMARY | 2025-03-21 12:30 | XMS_ITS ---
Author Organization [facility] [employer] ([address]) Address [address] [place] [address] Care Team Providers Care Pay Per Click Strategist Name Role Phone Preston Uvaldo Primary Care Provider UnavailFaby Dsouza Unavailable [phone] Summer Valle Unavailable Unavailable REASON FOR VISIT ARC follow-up Social History Sex Assigned At : Social History Observation Description Sex Assigned At Female Encounters Encounter Location Date Provider Diagnosis [facility] [address] [place] [address] 03/21/2025 Faby Corea Plan Of Treatment Next Appt Details Provider Name:Omari HJackeline Matias , 07/15/2025 05:00:00 PM, [address], [address], [place], [address], Provider Name:Faby Corea , 10/24/2025 07:30:00 AM, [address], [address], [place], [address], Progress Notes * Christal DEDOB:1964 (60 yo F)Acc No.[id number]:03/21/2025 Progress Notes Patient: Marley MURRIETA Christal Provider: Linnea Corea PA-C :1965 A ge:59 Y S ex:Female Date:03/21/2025 Address:[address] [place], [place] [phone] Pcp:Uvaldo Johnston Subjective: * Chief Complaints: * 1 . ARC follow-up. * Medical History: Objective: * Vitals: Assessment: Plan: * Treatment: * Billing Information: * Visit Code: * Procedure Codes: * Electronic signature of Andrea Corea PA-C [facility] on 06/21/2025 at 07:56 AM CDT Sign off status: Pending * Provider: Linnea Corea PA-C Date: 0 03/21/2025 Generated for Basilia lara/Kelley/Mikeyransmitting on: 1 07:56 AM CDT
--- OUTSIDE RECORDS SUMMARY | 2025-06-21 07:56 | XMS_ITS | Patient Health Record ---
Author Organization [facility] Address [address] [place], [place] [address] Care Team Providers Care Restaurant Area Manager Name Role Phone ERICA MENDOZA Unavailable [phone] Darnell Nino Unavailable Unavailable Reason For Referral No Information Social History Social History Additional Details Category Social Info Options Details Migrated Social History Migrated Social History History of tobacco use : , Smoking Status : Never smoked Plan Of Treatment No Information Insurance Providers Payer Name Payer Address Payer Phone Subscriber Number Group Number Insured Name Patient Relationship to Insured Coverage Start Date Coverage End Date [facility] [address] [address] [place] [address] [id number] ADEEL OLEARY Spouse - patient is the spouse of the insured
--- OUTSIDE RECORDS SUMMARY | 2025-06-21 07:56 | XMS_ITS | Clinical Summary ---
Author Organization [facility] Address [address] [place] [address] Care Team Providers Care Supervisor Bottle House Cleaners Name Role Phone Unavailable Primary Care Provider Unavailabl e Source Comments [facility],non-owned Affiliates and Associated Physician Practices is amultiple site organization consisting of ambulatory clinics and hospital sitesin [place], [place]. This disclosure is being madepursuant to the Care Everywhere program and may not contain all information available regarding this patient. Last updated 18.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 Gender Identity Not on file Sexual Orientation Not on file Last Filed Vital Signs Vital Sign Reading Time Taken Comments Blood Pressure 97/70 10/01/2009 11:30 AM PYRIDINE RECOVERY OPERATOR Pulse 64 10/01/2009 11:30 AM PYRIDINE RECOVERY OPERATOR Temperature - - Respiratory Rate 16 10/01/2009 9:43 AM PYRIDINE RECOVERY OPERATOR Oxygen Saturation 95% 10/01/2009 11:00 AM PYRIDINE RECOVERY OPERATOR Inhaled Oxygen Concentration - - Weight 93 kg (205 lb) 10/01/2009 9:43 AM PYRIDINE RECOVERY OPERATOR Height 177.8 cm (5' 10) 10/01/2009 9:43 AM PYRIDINE RECOVERY OPERATOR Body Mass Index 29.41 10/01/2009 9:43 AM PYRIDINE RECOVERY OPERATOR Plan of Treatment Health Maintenance Due Date Last Done Comments COLOGUARD (AGES 45-75) - COL ON CA SCREENING 1966 COLON MONITORING 1966 COLONOSCOPY - COLON CA SCREENING 1966 CT COLONOGRAPHY - COLON CA SCREENING 1966 Colorectal Cancer Screening 1966 FIT - COLON CA SCREENING 1966 FLEX SIG - COLON CA SCREENING 1966 LIPID TESTING 1966 MAMMOGRAM 1966 HIV SCREENING 1981 HEPATITIS C SCREENING 04/08/1984 DTAP/TDAP/TD VACCINES (1 - Tdap) 1985 HEPATITIS B VACCINE (1 of 3 - 19+ 3-dose series) 1985 PAP SMEAR 1987 PNEUMOCOCCAL VACCINE 50+ (1 of 1 - PCV) 2016 ZOSTER VACCINE (1 of 2) 2016 DEPRESSION SCREENING 08/22/2024 COVID-19 VACCINE (1 - 2023-2 5 season) 2025 INFLUENZA VACCINE (#1) 2025 HIB VACCINE Aged Out No longer [...] patient's age to complete this topic Insurance [facility] BCBS/BLUE [employer] [facility]
--- OUTSIDE RECORDS SUMMARY | 2025-06-21 07:56 | XMS_ITS | Clinical Summary ---
Author Organization [facility] Address [address] [place] [id number] Care Team Providers Care Meat Counter Clerk Name Role Phone None, Provider MD Primary [...] Td Vaccines ( 1 - Tdap) 1985 Cervical Cancer Screening Pa p with HPV Testing (Age 30 to 64) Every 5 Years 1996 Cervical Cancer Screening with HPV 1996 Mammogram Screening 2006 Pneumococcal Vaccine: 50+ Ye ars (1 of 1 - PCV) 2016 Zoster Vaccines (1 of 2) 2016 COVID-19 Vaccine ( - 2024-2 6 season) 2025 Influenza Adult (#1) 2025 Hepatitis A Vaccines Aged Out No long er eligible based on patient's age to complete this topic Meningococcal B Vaccine Aged Out No l onger eligible based on patient's age to complete this topic Meningococcal Vaccine Aged Out No vikas hillary eligible based on patient's age to complete this topic RSV Immunizations Under 20 Months Aged Out No longer eligible based on patient's age to complete this topic Insurance [facility] Care Teams Meat Counter Clerk Relationship Specialty Start Date End Date None, Provider, PCP - General UNKNOWN PHYSICIAN SPECIALTY 01/05/23
--- OUTSIDE RECORDS SUMMARY | 2025-06-21 07:56 | XMS_ITS | Clinical Summary ---
Author Organization [facility] Address [address] [place] [address] Care Team Providers Care Brush Finisher Name Role Phone Chet Christianson MD Primary Care Provider [phone]- [phone] Allergies No known active allergies Medications ibuprofen [...] on file Legal Sex Female 1:57 AM REPRODUCTION ORDER PROCESSOR Gender Identity Not on file Sexual Orientation [...] 9:09 AM CDT Height 177.8 cm (5' 10) 12/09/2021 9:09 AM CDT Body Mass Index [...] Vaccine (1 of 2) 2016 Covid-19 Vaccine (3 - 2024-2 6 season) 2025 08/31/2020, 08/10/2020 Influenza Vaccine (#1) 2025 0, 08/29/2018, 05/30/2017 Pneumococcal vaccine <65 Aged Out 021, 03/21/2017 No longer eligible based on patient's age to complete this topic Insurance [employer] OOS [employer] OOS BLUE [employer] CHOICE OOS Care Teams Brush Finisher Relationship Specialty Start Date End Date Chet Christianson MD [address] [facility] [address] [place] [address] PCP - General Internal Medicine 11/27/21
--- OUTSIDE RECORDS SUMMARY | 2025-06-21 07:56 | XMS_ITS | Patient Health Record ---
Author Organization [facility] ([address]) Address [address] [place] [address] Care Team Providers Care 3D Designer Name Role Phone PrestonUvaldo Primary Care Provider UnavailFaby Dsouza Unavailable [phone] Summer Valle Unavailable Unavailable Omari Matias Unavailable [phone] Allergies No Known Allergies Results Component Value Reference Range Notes CARDIO IQ(R) VITAMIN D, 25 H YDROXY Reviewed date:06/08/2025 10:26:32 PM Interpretation:Normal Performing Lab:[facility], [facility], [address] [place] [address], [address], [place], [address] Camila Bingham MD,PhD Notes/Report: FASTING: YES FASTING:YES NON-FASTING; NON-FASTING; NON-FASTING VITAMIN D, 25-OH, TOTAL 56 30-100 ng/mL (Note) Vitamin D, 25-Hydroxy reports concentrations of two common forms, 25-OHD2 and 25-OHD3. 25-OHD3 indicates both endogenous production and supplementation. 25-OHD2 is an indicator of exogenous sources such as diet or supplementation. Therapy is based on measurement of Total 25-OHD, with levels <20 ng/mL indicative of Vitamin D deficiency, while levels between 20 ng/mL and 30 ng/mL suggest insufficiency. Optimal levels are > or = 30 ng/mL. For additional information, please refer to http://education.[facility].co m/faq/KQZ758 (This link is being provided for information/educational purposes only.) VITAMIN D, 25-OH, D3 56 Referen ce range: Not established VITAMIN D, 25-OH, D2 <4.0 (Note) Reference range: Not established This test was developed and its analytical performance characteristics have been determined by [employer]. It has not been cleared or approved by the US Food and Drug Administration. This assay has been validated pursuant to the CLIA regulation and is used for Clinical purposes. [facility] [address] [address],[address] [place] [address] Camila Bingham MD, PhD See Note 1 Note 1 For additional information, please refer to http://education.[employer] m/faq/ADR969 (This link is being provided for informational/ educational purposes only.) DIPHTHERIA AND TETANUS ANTIT OXOIDS Reviewed date:06/08/2025 10:27:34 PM Interpretation:Normal Performing Lab:[facility], [facility],, [address] [place], [address] Andreina Hernandez MD,PhD,PAZ Notes/Report: FASTING: YES FASTING:YES NON-FASTING; NON-FASTING; NON-FASTING DIPHTHERIA ANTITOXOID 0.17 REFERENCE RANGE: 0.10 IU/mL or greater Interpretive Criteria <0.10 IU/mL Nonprotective Antibody Level > Or = 0.10 IU/mL Protective Antibody Level Antibody levels > or = 0.10 IU/mL are considered protective. After a primary series of three properly spaced diphtheria toxoid doses in adults or four doses in infants, a protective level of antitoxin (defined as > or = 0.10 IU of antitoxin/mL) is reached in more than 95% of immunized persons. This test was developed and its analytical performance characteristics have been determined by [facility]. It has not been cleared or approved by FDA. This assay has been validated pursuant to the CLIA regulations and is used for clinical purposes. TETANUS ANTITOXOID 0.66 REFERENCE RANGE: 0.10 IU/mL or greater Antibody levels > or = 0.10 IU/mL are considered protective. However, tetanus can still occur in some individuals with such antibody levels. These results should not be used to determine the necessity to administer antitoxin when clinically indicated. This test was developed and its analytical performance characteristics have been determined by [facility]. It has not been cleared or approved by FDA. This assay has been validated pursuant to the CLIA regulations and is used for clinical purposes. H. INFLUENZAE TYPE B AB Reviewed date:06/08/2025 10:26:46 PM Interpretation:Normal Performing Lab:[facility], [facility],, [address] [place], [address] Andreina Hernandez MD,PhD,PAZ Notes/Report: NON-FASTING; NON-FASTING; NON-FASTING FASTING:YES FASTING: YES HAEMOPHILUS INFLUENZA TYPE B ANTIBODY (IGG) 1.94 REFERENCE RANGE: > or = 1.00 mcg/mL INTERPRETIVE CRITERIA: <0.15 mcg/mL Nonprotective Antibody Level 0.15 - 0.99 mcg/mL Indeterminate for protective antibody > or = 1.00 mcg/mL Protective Antibody Level IgG antibody to polyribosylribitol phosphate (PRP), the capsular polysaccharide of Haemophilus influenzae type b, is measured in micrograms/mL (mcg/mL), based on correlations with a reference Madan radioimmunoprecipitation assay (OPAL). The exact level of antibody needed for protection from infection has not been clarified; values ranging from 0.15 mcg/mL to 1.00 mcg/mL have been reported. A four-fold increase in the PRP IgG antibody level between pre-vaccination and post-vaccination sera is considered evidence of effective immunization. IMMUNOGLOBULINS A/E/G/M,SERU M Reviewed date:06/08/2025 10:27:47 PM Interpretation:Abnormal Performing Lab:[facility], [facility], [address] [place], [address] Kamran Hassan MD Notes/Report: NON-FASTING; NON-FASTING; NON-FASTING FASTING:YES FASTING: YES IMMUNOGLOBULIN A 220 47-310 mg/dL IMMUNOGLOBULIN E 168 <HS=429 kU/L IMMUNOGLOBULIN G 6905 509-8589 mg/dL IMMUNOGLOBULIN M 96 50-300 mg/dL STREPTOCOCCUS PNEUMONIAE AB (IGG) (23 SEROTYPES) (Not yet reviewed by provider) Interpretation:Abnormal Performing Lab:[facility], [facility],, [address] [place], [address] Andreina Hernandez MD,PhD,PAZ Notes/Report: NON-FASTING; NON-FASTING; NON-FASTING FASTING:YES FASTING: YES SEROTYPE 1 (1) 1.0 SEROTYPE 2 (2) 0.4 SEROTYPE 3 (3) 0.4 SEROTYPE 4 (4) 1.1 SEROTYPE 5 (5) <0.3 SEROTYPE 8 (8) 1.4 SEROTYPE 9 (9N) 0.4 SEROTYPE 12 (12F) <0.3 SEROTYPE 14 (14) 23.7 SEROTYPE 17 (17F) <0.3 SEROTYPE 19 (19F) 0.5 SEROTYPE 20 (20) 2.4 SEROTYPE 22 (22F) <0.3 SEROTYPE 23 (23F) 0.9 SEROTYPE 26 (6B) <0.3 SEROTYPE 34 (10A) 2.6 SEROTYPE 43 (11A) 0.3 SEROTYPE 51 (7F) 2.0 SEROTYPE 54 (15B) 21.0 SEROTYPE 56 (18C) 0.7 SEROTYPE 57 (19A) 7.6 SEROTYPE 68 (9V) <0.3 SEROTYPE 70 (33F) 7.1 Serologic correlates of protection against pneumococcal disease have not been rigorously established for all patient populations. Published data and expert consensus (including WHO) suggest protection from invasive disease usually occurs at levels >or =0.3-0.50 mcg/mL for healthy children receiving pneumococcal conjugate vaccines. Higher titers may be necessary to protect from non-invasive infection (e.g., pneumonia, otitis, sinusitis). Expert opinion suggests that a cut-off of >= 1.3 mcg/mL may be a more relevant value to assess antibody responses after pneumococcal polysaccharide vaccines or for immunocompromised patients. In addition to antibody quantity, protection also depends on antibody avidity and opsonophagocytic activity. Some experts consider that post-vaccination (4-6 weeks) IgG seroconversion and/or 2- to 4-fold rise in IgG titers for >50% to 70% of vaccine serotypes demonstrates a normal post-vaccine serologic response. Persons with high initial serotype-specific titers may have less robust responses. [facility] uses a multi-analyte immunodetection (MAID) method. The method employs the SIVI flow cytometric system which measures multiple analytes simultaneously. The FDA standard reference serum 89-S is used as the calibration standard. Results are reported in mcg/mL. This assay detects all of the 23 of the serotypes in the 23-valent polysaccharide vaccine and 12 of the 13 serotypes in the 13-valent conjugate vaccine. This test was developed and its analytical performance characteristics have been determined by [facility]. It has not been cleared or approved by FDA. This assay has been validated pursuant to the CLIA regulations and used for clinical purposes. For additional information, please refer to http://education.[employer] m/faq/JHJ193 (This link is being provided for informational/ educational purposes only.) Reason For Referral No Information Medications Medication SIG (Take, Route, Frequency, Duration) Notes Start Date End Date Status Famotidine 40 MG 1 tab(s) orally 1 hr prior to shots; Duration: 30 days 12/19/2023 Not-Taking D3 1000 1000 intl units 1 tab(s) orally once a day; Duration: 30 day(s) Active predniSONE 20 MG 2 tabs Orally Once a day; Duration: 4 days 05/31/2024 Not-Taking AEROCHAMBER MDI SPACER N/A user with MDI inhalers by mouth q4-6 hours PRN; Duration: 30 day(s) Active Olopatadine HCl 0.6 % 2 sprays in each n ostril Nasally Twice a day; Duration: 30 days Active MONTELUKAST SODIUM 10 mg 1 tab(s) orally 30 min prior to shots; Duration: 30 day(s) Active FLONASE 50 mcg/inh 1 spray(s) in each nostril once a day; Duration: 30 day(s) Not-Taking NASAL WASHES N/A as directed intranas ally as needed; Duration: 30 Active ZYRTEC 10 mg 1 tab(s) orally once a day Not-Taking SIT (TRADITIONAL) variable per schedule SC per schedule; Duration: to be determined Active FAMOTIDINE 40 mg 1 tab(s) orally 1 hr prior to shots; Duration: 30 days 12/19/2023 Not-Taking AUVI-Q 0.3 mg 0.3 mg intramuscular ly once; Duration: 1 dose(s) Active Vitamin D3 25 MCG (1000 UT) 1 tab(s) orally once a day; Duration: 30 day(s) Not-Cal ing OLOPATADINE HYDROCHLORIDE 665 mcg/inh 2 spray(s) intranasally 2 times a day; Duration: 30 day(s) Active Montelukast Sodium 10 MG 1 tab(s) orally 30 min prior to shots; Duration: 30 day(s) Not-Taking PROAIR HFA 90 mcg/inh 2 puff(s) inhaled Q4-6 hours, PRN and per the asthma action plan; Duration: 30 day(s) Active Auvi-Q 0.3 MG/0.3ML 0.3 mg intramuscular ly once; Duration: 1 dose(s) Not-Ta ayesha Flonase Allergy Relief 50 MCG/ACT 1 spray(s) in each nostril once a day; Duration: 30 day(s) Active Albuterol Sulfate HFA 108 (90 Base) MCG/ACT 2 puffs as needed Inhalation every 4 hrs; Duration: 30 days 05/02/2025 Active ZyrTEC Allergy 10 MG 1 tab(s) orally onc e a day Active Immunizations Vaccine Route Administration Date Status Comme nts NOC Pneumovax 23 IM Intramuscular 06/30/2021 Administered NOC Pneumovax 23 IM Intramuscular 03/08/2022 Administered Fluzone Quadrivalent Unknown 05/30/2017 Administered Pneumovax 23 IM Intramuscular 03/21/2017 Administered NOC Fluzone Quadrivalent Unknown 08/29/2018 Administere d Flucelvax Unknown 08/22/2019 Administered NOC Flucelevax Quadrivalent Unknown 08/22/2019 Administered Covid 19 (Pfizer) Unknown 08/10/2020 Administered Covid 19 (Pfizer) Unknown 08/31/2020 Administered Covid 19 (Pfizer) Unknown 08/31/2020 Administered NOC Prevnar 20 IM Intramuscular 07/26/2023 Administered Social History Tobacco Use: Social History Observation Description Date Details (start date - stop date) Never Smoker NA - NA Sex Assigned At : Social History Observation Description Sex Assigned At Female Tobacco Control (Standard) Question Answer Notes Tobacco use: Nonsmoker AUDIT-C (Standard) Question Answer Notes Did you have a drink contain ing alcohol in the past year? Yes How often did you have a dri nk containing alcohol in the past year? Monthly or less (1 point) How many drinks did you have on a typical day when you were drinking in the past year? 1 or 2 drinks (0 point) How often did you have six o r more drinks on one occasion in the past year? Never (0 point) Points 1 Interpretation Negative Problems Problem Type SNOMED Code ICD Code Onset Dates Problem Status W/U Status Risk Notes Problem Wheezing (48549560) Wheezing (R06.2) Active confirmed Problem Chronic allergic conjunctivitis (39524383) Other chronic allergic conjunctivitis (H10.45) Active confirmed Problem Allergic rhinitis caused by pollen (disorder) (41012334) Allergic rhinitis due to pollen (J30.1) Active confirmed Problem Allergic rhinitis caused by animal hair and dander (028982582020521) Allergic rhinitis due to animal (cat) (dog) hair and dander (J30.81) Active confirmed Problem Allergic rhinitis (19517400) Other allergic rhinitis (J30.89) Active confirmed Problem Polyp of nasal cavity (disorder) (904281312) Nasal polyp, unspecified (J33.9) Active confirmed Problem Hypertrophy of nasal turbinates (69060857) Hypertrophy of nasal turbinates (J34.3) Active confirmed Problem Allergic rhinitis caused by pollen (disorder) (68050148) Allergic rhinitis due to pollen (J30.1) Active confirmed Problem Allergic rhinitis caused by animal hair and dander (353053348615971) Allergic rhinitis due to animal (cat) (dog) hair and dander (J30.81) Active confirmed Problem Allergic rhinitis (45896783) Other allergic rhinitis (J30.89) Active confirmed Problem Chronic allergic conjunctivitis (12928254) Other chronic allergic conjunctivitis (H10.45) Active confirmed Problem Chronic sinusitis (85852461) Chronic sinusitis, unspecified (J32.9) Active confirmed Problem Vitamin D deficiency (36858702) Vitamin D deficiency, unspecified (E55.9) Active confirmed Vital Signs Respiratory Rate 17 /min 05/02/2025 Oximetry 98 % 05/02/2025 Blood pressure diastolic 87 mm Hg 05/02/2025 Height 70.25 in 05/02/2025 Blood pressure systolic 129 mm Hg 05/02/2025 Weight 231.6 lbs 05/02/2025 BMI 32.99 kg/m2 05/02/2025 Encounters Encounter Location Date Provider Diagnosis [facility] [address] [place] [address] 06/17/2025 Omari Matias Allergic rhinitis du e to pollen J30.1 ; Other allergic rhinitis J30.89 ; Allergic rhinitis due to animal (cat) (dog) hair and dander J30.81 and Other chronic allergic conjunctivitis H10.45 [facility] [address] [place] [phone] 05/21/2025 Omari Matias Allergic rhinitis du e to pollen J30.1 ; Other allergic rhinitis J30.89 ; Allergic rhinitis due to animal (cat) (dog) hair and dander J30.81 and Other chronic allergic conjunctivitis H10.45 [facility] [address] [place] [phone] 04/23/2025 Omari Florencio Allergic rhinitis du e to pollen J30.1 ; Other allergic rhinitis J30.89 ; Allergic rhinitis due to animal (cat) (dog) hair and dander J30.81 and Other chronic allergic conjunctivitis H10.45 [facility] [address] [place] [phone] 04/15/2025 Omari Florencio Allergic rhinitis du e to pollen J30.1 ; Other allergic rhinitis J30.89 ; Allergic rhinitis due to animal (cat) (dog) hair and dander J30.81 and Other chronic allergic conjunctivitis H10.45 [facility] [address] [place] [phone] 02/26/2025 Omari Florencio Allergic rhinitis du e to pollen J30.1 ; Other allergic rhinitis J30.89 ; Allergic rhinitis due to animal (cat) (dog) hair and dander J30.81 and Other chronic allergic conjunctivitis H10.45 [facility] [address] [place] [phone] 02/04/2025 Omariyessy Matias Allergic rhinitis du e to pollen J30.1 ; Other allergic rhinitis J30.89 ; Allergic rhinitis due to animal (cat) (dog) hair and dander J30.81 and Other chronic allergic conjunctivitis H10.45 [facility] [address] [place] [phone] 01/07/2025 Omari Matias Allergic rhinitis du e to pollen J30.1 ; Other allergic rhinitis J30.89 ; Allergic rhinitis due to animal (cat) (dog) hair and dander J30.81 and Other chronic allergic conjunctivitis H10.45 [facility] [address] [place] [phone] 11/27/2024 Omari Florencio Allergic rhinitis du e to pollen J30.1 ; Other allergic rhinitis J30.89 ; Allergic rhinitis due to animal (cat) (dog) hair and dander J30.81 and Other chronic allergic conjunctivitis H10.45 [facility] [address] [place] [phone] 10/30/2024 Omariyessy Matias Allergic rhinitis du e to pollen J30.1 ; Other allergic rhinitis J30.89 ; Allergic rhinitis due to animal (cat) (dog) hair and dander J30.81 and Other chronic allergic conjunctivitis H10.45 [facility] [address] [place] [phone] 09/27/2024 Omari Matias Allergic rhinitis du e to pollen J30.1 ; Other allergic rhinitis J30.89 ; Allergic rhinitis due to animal (cat) (dog) hair and dander J30.81 and Other chronic allergic conjunctivitis H10.45 [facility] [address] [place] [phone] 09/05/2024 Omari Matias Allergic rhinitis du e to pollen J30.1 ; Other allergic rhinitis J30.89 ; Allergic rhinitis due to animal (cat) (dog) hair and dander J30.81 and Other chronic allergic conjunctivitis H10.45 [facility] [address] [place] [phone] 08/28/2024 Omari Mtaias Allergic rhinitis du e to pollen J30.1 ; Other allergic rhinitis J30.89 ; Allergic rhinitis due to animal (cat) (dog) hair and dander J30.81 and Other chronic allergic conjunctivitis H10.45 [facility] [address] [place] [phone] 08/20/2024 Omari Matias Allergic rhinitis du e to pollen J30.1 ; Other allergic rhinitis J30.89 ; Allergic rhinitis due to animal (cat) (dog) hair and dander J30.81 and Other chronic allergic conjunctivitis H10.45 [facility] [address] [place] [phone] 07/24/2024 Omari Matias Allergic rhinitis du e to pollen J30.1 ; Other allergic rhinitis J30.89 ; Allergic rhinitis due to animal (cat) (dog) hair and dander J30.81 and Other chronic allergic conjunctivitis H10.45 [facility] [address] [place] [phone] 07/16/2024 Omari Matias Allergic rhinitis du e to pollen J30.1 ; Other allergic rhinitis J30.89 ; Allergic rhinitis due to animal (cat) (dog) hair and dander J30.81 and Other chronic allergic conjunctivitis H10.45 [facility] [address] [place] [phone] 05/02/2025 Faby Anmol Allergic rhinitis du e to pollen J30.1 ; Allergic rhinitis due to animal (cat) (dog) hair and dander J30.81 ; Other allergic rhinitis J30.89 ; Other chronic allergic conjunctivitis H10.45 ; Wheezing R06.2 ; Chronic sinusitis, unspecified J32.9 and Vitamin D deficiency, unspecified E55.9 Assessments Encounter Date Diagnosis (ICD Code) Assessment Notes Treatment Notes Treatment Clinical Notes Section Notes 07/16/2024 Allergic rhinitis due to pollen (ICD-10 [...] 01/07/2025 Other allergic rhinitis (ICD-10 - J30.89) 02/04/2025 Allergic rhinitis due to pollen (ICD-10 - J30.1) 02/04/2025 Other allergic rhinitis (ICD-10 - J30.89) 02/26/2025 Allergic rhinitis due to pollen (ICD-10 - J30.1) 02/26/2025 Other allergic rhinitis (ICD-10 - J30.89) 04/15/2025 Allergic rhinitis due to pollen (ICD-10 - J30.1) 04/15/2025 Other allergic rhinitis (ICD-10 - J30.89) 04/23/2025 Allergic rhinitis due to pollen (ICD-10 - J30.1) 04/23/2025 Other allergic rhinitis (ICD-10 - J30.89) 05/02/2025 Allergic rhinitis due to pollen (ICD-10 - [...] PND she found Olopatadine 2 sprays helpful. SCIT reformualated in 01/2024. Still symptomatic. With new vials plan on titrating to 0.5 mL -AIE UTD -not due for shots -continue BID meds 05/02/2025 Allergic rhinitis due to animal (cat) (dog) hair and dander (ICD-10 - J30.81) Follow allergen avoidance, meds and continue SCIT as an adjunctive treatment to current regimen 05/21/2025 Allergic rhinitis due to pollen (ICD-10 - J30.1) 05/21/2025 Other allergic rhinitis (ICD-10 - J30.89) 06/17/2025 Allergic rhinitis due to pollen (ICD-10 - J30.1) 06/17/2025 Other allergic rhinitis (ICD-10 - J30.89) 06/17/2025 Allergic rhinitis due to animal (cat) (dog) hair and dander (ICD-10 - J30.81) 05/21/2025 Allergic rhinitis due to animal (cat) (dog) hair and dander (ICD-10 - J30.81) 05/02/2025 Other allergic rhinitis (ICD-10 - J30.89) Follow allergen avoidance, meds and continue SCIT as an adjunctive treatment to current regimen 04/23/2025 Allergic rhinitis due to animal (cat) (dog) hair and dander (ICD-10 - J30.81) 04/15/2025 Allergic rhinitis due to animal (cat) (dog) hair and dander (ICD-10 - J30.81) 02/26/2025 Allergic rhinitis due to animal (cat) (dog) hair and dander (ICD-10 - J30.81) 02/04/2025 Allergic rhinitis due to animal (cat) (dog) hair and dander (ICD-10 - J30.81) 01/07/2025 Allergic rhinitis due to animal (cat) [...] hair and dander (ICD-10 - J30.81) 07/16/2024 Other chronic allergic conjunctivitis (ICD-10 - [...] Other chronic allergic conjunctivitis (ICD-10 - H10.45) 02/04/2025 Other chronic allergic conjunctivitis (ICD-10 - H10.45) 02/26/2025 Other chronic allergic conjunctivitis (ICD-10 - H10.45) 04/15/2025 Other chronic allergic conjunctivitis (ICD-10 - H10.45) 04/23/2025 Other chronic allergic conjunctivitis (ICD-10 - H10.45) 05/02/2025 Other chronic allergic conjunctivitis (ICD-10 - H10.45) Given ocular signs and symptoms I encouraged allergy avoidance measures and meds as above. 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 As above, received steroids in 09/2019 and now today. No wheezing on exam. Continue to have TANNA on hand and use per AAP and spacer -recheck spirometry at f/u 05/02/2025 Chronic sinusitis, unspecified (ICD-10 - J32.9) Had prior FESS with polyp resection performed by Dr. Valle and recently had another sinus surgery by Dr. Taylor in 04/2023. Continue treatment for atopic disease as above. Despite several Pneumovax-23 vaccinations she still has inadequate protection, c/w BLAINE. Discussed treatment options including prophylactic abx and IVIG. She has been in good health, will continue to monitor her frequency of infection. -Will recheck labs now 05/02/2025 Vitamin D deficiency, unspecified (ICD-10 - E55.9) Continue supplementation 05/02/2025 Other Plan Of Treatment Pending Test Test Name Order Date STREPTOCOCCUS PNEUMONIAE IGG AB (23 SERO TYPES) 05/02/2025 DIPHTHERIA ANTITOXOID AND TETANUS ANTITO XOID ANTIBODIES 05/02/2025 VITAMIN D, 25-OH, TOTAL, [place] 05/02/2025 HAEMOPHILUS INFLUENZAE B ANTIBODY, IGG 0 05/02/2025 -Pneumococcal Ab (23 Serotype) 4 STREPTOCOCCUS PNEUMONIAE AB (IGG) (23 SE ROTYPES) 05/02/2025 Next Appt Details Provider Name:Omari Matias , 07/15/2025 05:00:00 PM, [address], [place], [address], Provider Name:Faby Corea , 10/24/2025 07:30:00 AM, [address], [place], [address], Insurance Providers Payer Name Payer Address Payer Phone Subscriber Number Group Number Insured Name Patient Relationship to Insured Coverage Start Date Coverage End Date [address] [place] [address] [phone] [id number] Christal Ramirez Self - patient is the [...]
[2025-06-21 08:29] LABS: Hematocrit 44.5 % (37.0-47.0); Hemoglobin 14.9 g/dL (12.0-15.0); Immature Granulocyte Percent A 0.3 % (0-0.5); Lymphocytes Absolute Auto 2.60 K/mm3 (0.9-3.2); Mean Corpuscular HGB Conc 33.5 g/dl (32-36); Mean Corpuscular Hemoglobin 29.9 pg (26-34); Mean Corpuscular Volume 89.4 fl (80-100); Nucleated Red Blood Cells Absolute Auto 0.000 K/mm3 (0.0-0.012); Nucleated Red Blood Cells Perc 0.0 % (0.0-0.2); Platelet Count Result 322 k/mm3 (150-375); Red Blood Count 4.98 M/mm3 (4.2-5.4); White Blood Count 7.6 K/mm3 (4.5-10.0)
[2025-06-21 08:49] LABS: Alanine Aminotransferase 24 U/L (6-35); Albumin Level 4.3 g/dL (3.5-5.1); Alkaline Phosphatase 59 U/L (38-126); Anion Gap 7 mmol/L (4-12); Aspartate Amino Transferase 27 U/L (14-36); Bilirubin,Total 1.1 mg/dL (0.2-1.3); Blood Urea Nitrogen 14 mg/dL (7-17); Calcium 9.2 mg/dL (8.4-10.2); Carbon Dioxide 26 mmol/L (22-30); Chloride 101 mmol/L (98-107); Estimated Glomerular Filt Rate > 60; Glucose 96 mg/dL (65-110); Potassium 4.2 mmol/L (3.4-5.0); Sodium 134 mmol/L (137-145); Total Protein 7.4 g/dL (6.3-8.2)
== END 2025-06-21 07:51 | disposition home or self-care (01) ==
LOC: ANHLAB 07:52
PROVIDERS: PCP Family Medicine; Visit Provider Family Medicine
DX: Z01.818 Encounter for other preprocedural examination (principal)
CPT/HCPCS: 36415; 80053; 85025; 87081